=== PATIENT | female | born 1945 | race Caucasian/White ===

== ENCOUNTER 2017-10-31 11:59 | Inpatient (IN) | payer OTHER, BC ==
[2017-10-31 13:00] LABS: Absolute Lymphocytes (CBC) 1.1 K/uL (0.7-4.9); Absolute Monocytes 0.7 K/uL (0.1-1.3); Absolute Neutrophil 13.6 K/uL (1.8-8.0); Basophils % 0.2 % (0-1.3); Hematocrit 42.2 % (36.0-45.0); Lymphocytes % 7.2 % (15.3-44.8); MCH 36.6 pg (27.0-35.0); MCV 104.5 fL (80-100); MPV 8.7 fL (7.6-11.3); Monocytes % 4.5 % (3.3-12.3); RBC Red Blood Cell Count 4.04 M/uL (3.86-4.86)
[2017-10-31] MEDS ORDERED: [UNRECOGNIZED DRUG - OTHER] IV SCH (13:00)
[2017-10-31] MEDS ORDERED: MULTIVITAMINS IV SCH (13:00)
[2017-10-31] MEDS ORDERED: THIAMINE HCL IV SCH (13:00)
[2017-10-31] MEDS ORDERED: FOLIC ACID IV SCH (13:00)
[2017-10-31 13:04] LABS: Protime INR 0.97
--- NOTE | 2017-10-31 13:34 | RAD REPORT ---
EXAM DESCRIPTION: VAS - Extrem Venous W Compress Mike - 10/31/2017 1:26 pm CLINICAL HISTORY: swelling Bilateral leg edema and swelling. COMPARISON: No comparisons TECHNIQUE: Real-time sonographic interrogation of the left and right lower extremity deep venous sys tems was performed. FINDINGS: Normal compressibility, flow augmentation, phasic flow and spontaneous flow is identified in both the left and right lower extremity deep venous systems. IMPRESSION: No sonographic evidence of left or right lower extremity deep venous thrombosis.
--- NOTE | 2017-10-31 13:34 | RAD REPORT ---
EXAM DESCRIPTION: RAD - Chest Single View - 10/31/2017 1:21 pm CLINICAL HISTORY: near syncope Chest pain. COMPARISON: No comparisons FINDINGS: Portable technique limits examination quality. The lungs are grossly clear. The heart is normal in size. No displaced fractures. IMPRESSION: No acute intrathoracic process suspected.
[2017-10-31 13:35] LABS: Albumin 3.2 g/dL (3.4-5.0); BUN Blood Urea Nitrogen 15 mg/dL (7-18); Bicarbonate 35 mmol/L (21-32); Bilirubin Direct 0.7 mg/dL (0-0.2); CKMB Creatine Kinase MB 8.3 ng/mL (0.3-3.6); Glucose Level 104 mg/dL (74-106); Potassium 1.9 mmol/L (3.5-5.1); Protein, Total 7.5 g/dL (6.4-8.2)
[2017-10-31 13:59] LABS: Magnesium 1.2 mg/dL (1.8-2.4)
[2017-10-31 14:00] LABS: Sodium Level 115 mmol/L (136-145)
[2017-10-31 14:09] LABS: Blood Morphology Comment NOT SEEN (NOT SEEN); Platelet Estimate ADEQ; Urine White Blood Cell Casts OK
--- NOTE | 2017-10-31 14:20 | ER ---
Nurse's Notes [facility] Name: Linnea Randall Age: 72 yrs Sex: Female : 1945 Arrival Date: 10/31/2017 Time: 12:09 Bed 5 Private MD: Diagnosis: Hypo-osmolality and hyponatremia;Hypokalemia;Sepsis, unspecified organism;Atrial fibrillation and flutter Presentation: 10/31 12:09 Presenting complaint: Patient states: She was in her recliner and tried to get up but aj1 says that her knees would not support her states "I've been needing to get my knee replaced, but I haven't and now I can't stand on it. And I've been so weak, I can't hold anything down. I've been throwing up everything I eat for 4 months". Transition of care: patient was not received from another setting of care. Onset of symptoms is unknown. Risk Assessment: Do you want to hurt yourself or someone else? Patient reports no desire to harm self or others. Initial Sepsis Screen: Does the patient meet any 2 criteria? No. Patient's initial sepsis screen is negative. Does the patient have a suspected source of infection? No. Patient's initial sepsis screen is negative. Care prior to arrival: None. 12:09 Method Of Arrival: EMS: [facility] aj 12:09 Acuity: PABLITO 3 aj1 Triage Assessment: 12:13 General: Appears uncomfortable, Behavior is calm, cooperative, appropriate for age. aj1 Pain: Denies pain. Historical: - Allergies: 12:13 Amoxicillin; aj1 - Home Meds: 12:13 Cefuroxime Oral 500 mg daily [Active]; meloxicam 15 mg oral tab 1 tab once daily aj1 [Active]; clonazepam 0.5 mg Oral tab 1 tab as needed [Active]; - PMHx: 12:13 Arthritis; elevated LFT; aj1 - Immunization history:: Adult Immunizations up to date. - Social history:: Smoking status: Patient uses tobacco products, smokes two packs cigarettes per day. - Ebola Screening: : Patient denies travel to an Ebola-affected area in the 21 days before illness onset. Screenin:14 Abuse screen: Denies threats or abuse. Denies injuries from another. Nutritional aj1 screening: No deficits noted. Tuberculosis screening: No symptoms or risk factors identified. 20:15 Fall Risk None identified. aj1 Assessment: 12:14 General: Appears in no apparent distress. uncomfortable, Behavior is calm, cooperative, aj1 appropriate for age. Pain: Denies pain. Neuro: Level of Consciousness is awake, alert, obeys commands, Oriented to person, place, time, situation, Collar Shaper Operator are equal bilaterally Weakness in bilateral leg(s) Speech is normal, Facial symmetry appears normal. Cardiovascular: Patient's skin is warm and dry. Respiratory: Airway is patent Respiratory effort is even, unlabored, Respiratory pattern is regular, symmetrical. GI: Abdomen is flat, non-distended, Bowel sounds present X 4 quads. Abd is soft and non tender X 4 quads. Reports vomiting. : No signs and/or symptoms were reported regarding the genitourinary system. EENT: No signs and/or symptoms were reported regarding the EENT system. Derm: No signs and/or symptoms reported regarding the dermatologic system. Skin is pink, warm \\T\\ dry. normal. Musculoskeletal: Range of motion: intact in all extremities. 13:27 Reassessment: Patient appears in no apparent distress at this time. No changes from aj1 previously documented assessment. Patient and/or family updated on plan of care and expected duration. Pain level reassessed. Patient is alert, oriented x 3, equal unlabored respirations, skin warm/dry/pink. Echo at bedside. 14:30 Reassessment: Patient and/or family updated on plan of care and expected duration. Pain aj1 level reassessed. General: Appears in no apparent distress. uncomfortable, Behavior is calm, cooperative, appropriate for age. Pain: Denies pain. Neuro: Level of Consciousness is awake, alert, obeys commands, Oriented to person, place, time, situation, Speech is normal. Cardiovascular: Denies chest pain, palpitations, shortness of breath, Heart tones S1 S2 present Patient's skin is warm and dry. Rhythm is atrial fibrillation. Respiratory: Airway is patent Respiratory effort is even, unlabored, Respiratory pattern is regular, symmetrical, Breath sounds are clear bilaterally. GI: Abdomen is flat, non-distended. Derm: Skin is pink, warm \\T\\ dry. normal. Musculoskeletal: Range of motion: intact in all extremities. 15:30 Reassessment: Patient appears in no apparent distress at this time. No changes from aj1 previously documented assessment. Patient and/or family updated on plan of care and expected duration. Pain level reassessed. Patient is alert, oriented x 3, equal unlabored respirations, skin warm/dry/pink. 16:30 Reassessment: Dr. Orozco at bedside. aj1 16:49 Reassessment: Patient and/or family updated on plan of care and expected duration. Pain aj1 level reassessed. General: Appears in no apparent distress. uncomfortable, Behavior is calm, cooperative, appropriate for age. Pain: Denies pain. Neuro: Level of Consciousness is awake, alert, obeys commands, Oriented to person, place, time, situation, Collar Shaper Operator are equal bilaterally Weakness in bilateral leg(s). Cardiovascular: Denies chest pain, palpitations, shortness of breath, Heart tones S1 S2 present Patient's skin is warm and dry. Rhythm is atrial fibrillation. Respiratory: Airway is patent Respiratory effort is even, unlabored, Respiratory pattern is regular, symmetrical, Breath sounds are clear bilaterally. GI: Abdomen is flat, non-distended. Derm: Skin is pink, warm \\T\\ dry. normal. Musculoskeletal: Range of motion: intact in all extremities. 17:30 Reassessment: Patient appears in no apparent distress at this time. No changes from aj1 previously documented assessment. Patient and/or family updated on plan of care and expected duration. Pain level reassessed. Patient is alert, oriented x 3, equal unlabored respirations, skin warm/dry/pink. 18:30 Reassessment: Patient and/or family updated on plan of care and expected duration. Pain aj1 level reassessed. General: Appears in no apparent distress. uncomfortable, Behavior is calm, cooperative, appropriate for age. Pain: Denies pain. Neuro: Level of Consciousness is awake, alert, obeys commands, Oriented to person, place, time, situation, Collar Shaper Operator are equal bilaterally Weakness in bilateral leg(s) Speech is normal, Facial symmetry appears normal. Cardiovascular: Heart tones S1 S2 present Patient's skin is warm and dry. Rhythm is atrial fibrillation. Respiratory: Airway is patent Respiratory effort is even, unlabored, Respiratory pattern is regular, symmetrical, Breath sounds are clear bilaterally. GI: Abdomen is flat, non-distended. Derm: Skin is pink, warm \\T\\ dry. normal. Musculoskeletal: Range of motion: intact in all extremities. 19:30 Reassessment: Patient appears in no apparent distress at this time. No changes from aj1 previously documented assessment. Patient and/or family updated on plan of care and expected duration. Pain level reassessed. Patient is alert, oriented x 3, equal unlabored respirations, skin warm/dry/pink. 19:53 Reassessment: Report given to JOCELYNE Mantilla in ICU. aj1 Vital Signs: 12:13 BP 135 / 80; Pulse 97; Resp 15; Pulse Ox 99% on R/A; Weight 62.14 kg; Height 5 ft. 6 aj1 in. (167.64 cm); Pain 0/10; 13:27 BP 116 / 74; Pulse 94; Resp 20; Pulse Ox 97% on R/A; aj1 14:30 BP 127 / 75; Pulse 105; Resp 18; Pulse Ox 96% on R/A; aj1 15:30 BP 106 / 71; Pulse 83; Resp 18; Pulse Ox 97% on R/A; aj1 15:55 Temp 98.9(A); jb1 16:50 BP 105 / 57; Pulse 81; Resp 14; Pulse Ox 97% on R/A; aj1 17:30 BP 107 / 65; Pulse 76; Resp 20; Pulse Ox 97% on R/A; aj1 18:30 BP 118 / 62; Pulse 79; Resp 14; Pulse Ox 96% on R/A; aj1 19:30 BP 104 / 52; Pulse 81; Resp 16; Pulse Ox 98% on R/A; aj1 20:00 BP 103 / 66; Pulse 78; Resp 18; Pulse Ox 99% ; aj1 12:13 Body Mass Index 22.11 (62.14 kg, 167.64 cm) aj1 ED Course: 12:09 Patient arrived in ED. aj1 12:09 Shahla Cardenas FNP-C [facility]. snw 12:09 Domenic Ulrich MD is Attending Physician. snw 12:11 Triage completed. aj1 12:13 Arm band placed on. aj1 12:14 Patient has correct armband on for positive identification. Bed in low position. Call aj1 light in reach. Side rails up X2. 12:14 No provider procedures requiring assistance completed. aj1 12:24 EKG done, by ED staff, reviewed by Shahla JUAREZ. jb1 12:25 First set of blood cultures drawn by me. jb1 12:30 Chio Kirk, RN is Primary Nurse. aj1 12:40 Inserted saline lock: 20 gauge in left antecubital area, using aseptic technique. Blood jb1 collected. 12:40 Second set of blood cultures drawn. jb1 13:21 Chest Single View In Process Unspecified. EDMS 13:22 Ultrasound completed. Patient tolerated well. sg3 13:26 Extrem Venous W Compress Mike In Process Unspecified. EDMS 14:14 by me, sent to lab. Inserted saline lock: 20 gauge in right antecubital area, using iw aseptic technique. Blood collected. 14:18 Rocio Orozco MD is Hospitalizing Provider. snw 14:30 Wilson cath inserted, using sterile technique, 16 Fr., by me, balloon inflated, urine iw specimen collected. returned clear yellow urine. Patient tolerated well. 14:49 CT completed. Patient moved to CT via stretcher. Patient moved back from CT. cw1 14:50 CT Abd/Pelvis - W/Contrast In Process Unspecified. EDMS 14:50 CT Head Brain wo Cont In Process Unspecified. EDMS 20:15 Patient admitted, IV remains in place. aj1 Administered Medications: 14:00 Drug: Banana Bag - (NS 0.9% 1000 ml, foLIC Acid 1 mg, Thiamine 100 mg, Multivitamin 1 aj1 amp) Route: IV; Rate: 150 calculated rate; Site: left antecubital; 20:17 Follow up: IV Status: Infusion continued upon admission aj1 15:08 Drug: Potassium Chloride 20 mEq Route: IV; Rate: calculated rate; Site: right aj1 antecubital; 17:15 Follow up: IV Status: Completed infusion; IV Intake: 100ml aj1 15:08 Drug: HydroCORTISONE 100 mg Route: IVP; Site: left antecubital; aj1 16:35 Follow up: Response: No adverse reaction aj1 15:09 Drug: Magnesium Sulfate 2 grams Route: IVPB; Infused Over: 2 hrs; Site: left [facility] antecubital; 16:35 Follow up: IV Status: Completed infusion; IV Intake: 100ml aj1 16:34 Drug: LevaQUIN 750 mg Volume: 150 ml; Route: IVPB; Infused Over: 90 mins; Site: left aj antecubital; 18:00 Follow up: IV Status: Completed infusion; IV Intake: 150ml aj1 Intake: 16:35 IV: 100ml; Total: 100ml. aj1 17:15 IV: 100ml; Total: 200ml. aj1 18:00 IV: 150ml; Total: 350ml. aj1 Outcome: 14:19 Decision to Hospitalize by Provider. snw 20:16 Admitted to ICU accompanied by nurse, accompanied by tech, via stretcher, on monitor, aj1 with chart. 20:16 critical 20:16 Discharge instructions given to patient, Instructed on the need for admit, Demonstrated understanding of instructions. 20:18 Patient left the ED. aj1 Signatures: Dispatcher [employer] Camron Greenberg jbChio Rocha, RN RN ajShahla Mendoza, GEOTHERMAL INSTALLER-C GEOTHERMAL INSTALLER-Csnw Melanie Nuñez, Daiana Whitten RN 1 Zenia Irby sg3 Corrections: (The following items were deleted from the chart) 12:50 12:25 Initial lab(s) drawn, by , sent to lab. First set of blood cultures drawn by abena murray 12:51 12:48 Inserted saline lock: 20 gauge in left antecubital area, using aseptic technique. abena Blood collected. abena :51 12:40 Second set of blood cultures drawn by abena dyer
--- NOTE | 2017-10-31 14:20 | EDPHYS ---
Physician Documentation [facility] Name: Linnea Randlal Age: 72 yrs Sex: Female : 1945 Arrival Date: 10/31/2017 Time: 12:09 Bed 5 Private MD: ED Physician Domenic Ulrich HPI: 10/31 12:52 This 72 yrs old Female presents to ER via EMS with complaints of General snw Weakness. 12:52 Pt states over the past month she is just unable to support her own weight. Unable to snw stand without "collapse". Onset: The symptoms/episode began/occurred gradually, 4 week(s) ago. Severity of symptoms: At their worst the symptoms were moderate severe. It is unknown whether or not the patient has had similar symptoms in the past. scheduled for Liver "tests" on Thursday. Historical: - Allergies: 12:13 Amoxicillin; aj1 - Home Meds: 12:13 Cefuroxime Oral 500 mg daily [Active]; meloxicam 15 mg oral tab 1 tab once daily aj1 [Active]; clonazepam 0.5 mg Oral tab 1 tab as needed [Active]; - PMHx: 12:13 Arthritis; elevated LFT; aj1 - Immunization history:: Adult Immunizations up to date. - Social history:: Smoking status: Patient uses tobacco products, smokes two packs cigarettes per day. - Ebola Screening: : Patient denies travel to an Ebola-affected area in the 21 days before illness onset. ROS: 12:51 Constitutional: Negative for fever, chills, and weight loss, + generalized weakness snw Eyes: Negative for injury, pain, redness, and discharge, ENT: Negative for injury, pain, and discharge, Neck: Negative for injury, pain, and swelling, Cardiovascular: Negative for chest pain, palpitations, and edema, Respiratory: Negative for shortness of breath, cough, wheezing, and pleuritic chest pain, Abdomen/GI: Negative for abdominal pain, nausea, vomiting, diarrhea, and constipation, Back: Negative for injury and pain, : Negative for injury, bleeding, discharge, and swelling, MS/Extremity: Negative for injury and deformity, + arthritis Skin: Negative for injury, rash, and discoloration, Neuro: Negative for headache, weakness, numbness, tingling, and seizure. Exam: 12:43 Constitutional: This is a well developed, well nourished patient who is awake, alert, snw and in no acute distress. Head/Face: Normocephalic, atraumatic. Eyes: Pupils equal round and reactive to light, extra-ocular motions intact. Lids and lashes normal. Conjunctiva and sclera are non-icteric and not injected. Cornea within normal limits. Periorbital areas with no swelling, redness, or edema. Neck: Trachea midline, no thyromegaly or masses palpated, and no cervical lymphadenopathy. Supple, full range of motion without nuchal rigidity, or vertebral point tenderness. No Meningismus. Chest/axilla: Normal chest wall appearance and motion. Nontender with no deformity. No lesions are appreciated. Respiratory: Lungs have equal breath sounds bilaterally, clear to auscultation and percussion. No rales, rhonchi or wheezes noted. No increased work of breathing, no retractions or nasal flaring. Abdomen/GI: Soft, non-tender, with normal bowel sounds. No distension or tympany. No guarding or rebound. No evidence of tenderness throughout. Back: No spinal tenderness. No costovertebral tenderness. Full range of motion. Skin: Warm, dry with normal turgor. Normal color with no rashes, no lesions, and no evidence of cellulitis. MS/ Extremity: Pulses equal, no cyanosis. Neurovascular intact. Full, normal range of motion. Neuro: Awake and alert, GCS 15, oriented to person, place, time, and situation. Cranial nerves II-XII grossly intact. Motor strength 5/5 in all extremities. Sensory grossly intact. Cerebellar exam normal. Normal gait. Psych: Awake, alert, with orientation to person, place and time. Behavior, mood, and affect are within normal limits. 12:43 ENT: Mouth: Tongue: tender, displays stomatitis, displays thrush, Voice: is normal. 12:43 Cardiovascular: Rate: normal, Rhythm: irregularly irregular, Heart sounds: normal. Vital Signs: 12:13 BP 135 / 80; Pulse 97; Resp 15; Pulse Ox 99% on R/A; Weight 62.14 kg; Height 5 ft. 6 aj1 in. (167.64 cm); Pain 0/10; 13:27 BP 116 / 74; Pulse 94; Resp 20; Pulse Ox 97% on R/A; aj1 14:30 BP 127 / 75; Pulse 105; Resp 18; Pulse Ox 96% on R/A; aj1 15:30 BP 106 / 71; Pulse 83; Resp 18; Pulse Ox 97% on R/A; aj1 15:55 Temp 98.9(A); jb1 16:50 BP 105 / 57; Pulse 81; Resp 14; Pulse Ox 97% on R/A; aj1 17:30 BP 107 / 65; Pulse 76; Resp 20; Pulse Ox 97% on R/A; aj1 18:30 BP 118 / 62; Pulse 79; Resp 14; Pulse Ox 96% on R/A; aj1 19:30 BP 104 / 52; Pulse 81; Resp 16; Pulse Ox 98% on R/A; aj1 20:00 BP 103 / 66; Pulse 78; Resp 18; Pulse Ox 99% ; aj1 12:13 Body Mass Index 22.11 (62.14 kg, 167.64 cm) aj1 MDM: 12:19 Patient medically screened. snw 14:20 Data reviewed: vital signs, nurses notes. Data interpreted: Pulse oximetry: on room air snw is 97 %. Interpretation: normal. Counseling: I had a detailed discussion with the patient and/or guardian regarding: the historical points, exam findings, and any diagnostic results supporting the discharge/admit diagnosis, lab results, radiology results, the need for further work-up and treatment in the hospital. Physician consultation: Rocio Orozco MD was called at 14:20, was contacted at 14:20, and will see patient shortly. 14:21 ED course: severe electrolyte derangement. snw 10/31 12:26 Order name: Basic Metabolic Panel; Complete Time: 14:03 EDMS 10/31 12:26 Order name: CBC with Automated Diff; Complete Time: 14:11 EDMS 10/31 12:26 Order name: CKMB Creatine Kinase MB; Complete Time: 14:03 EDMS 10/31 12:26 Order name: Creatine Phosphokinase; Complete Time: 14:03 EDMS 10/31 12:26 Order name: Liver (Hepatic) Function; Complete Time: 14:03 EDMS 10/31 12:26 Order name: Magnesium; Complete Time: 14:03 EDMD 10/31 12:26 Order name: Protime (+INR); Complete Time: 13:09 EDMS 10/31 12:26 Order name: PTT, Activated Partial Thromb; Complete Time: 13:09 EDMS 10/31 12:26 Order name: Troponin (Emerg Dept Use Only); Complete Time: 13:52 EDMS 10/31 12:27 Order name: Blood Culture EDMS 10/31 12:27 Order name: Lactate; Complete Time: 14:03 EDMS 10/31 12:27 Order name: Procalcitonin; Complete Time: 13:55 EDMS 10/31 12:29 Order name: Vitamin B12 Level; Complete Time: 14:03 EDMS 10/31 13:08 Order name: CBC Smear Scan; Complete Time: 14:11 EDMS 10/31 14:06 Order name: Osmolality, Serum; Complete Time: 15:07 snw 10/31 14:06 Order name: LDH; Complete Time: 15:07 snw 10/31 14:06 Order name: Urine For Protein, Random; Complete Time: 15:38 snw 10/31 12:18 Order name: EKG; Complete Time: 13:14 snw 10/31 12:18 Order name: Cardiac monitoring; Complete Time: 12:25 snw 10/31 12:18 Order name: EKG - Nurse/Tech; Complete Time: 12:25 snw 10/31 12:18 Order name: IV Saline Lock; Complete Time: 12:49 w 10/31 12:18 Order name: Labs collected and sent; Complete Time: 12:49 snw 10/31 12:18 Order name: O2 Per Protocol; Complete Time: 12:25 snw 10/31 12:18 Order name: O2 Sat Monitoring; Complete Time: 12:25 snw 10/31 12:18 Order name: Urine Dipstick-Ancillary (obtain specimen); Complete Time: 15:42 snw 10/31 12:26 Order name: Chest Single View; Complete Time: 13:52 EDMS 10/31 12:33 Order name: Extrem Venous W Compress Mike; Complete Time: 13:52 EDMS 10/31 14:06 Order name: Urine Potassium Random; Complete Time: 15:38 snw 10/31 14:06 Order name: Urine Sodium Random; Complete Time: 15:38 snw 10/31 14:06 Order name: TSH; Complete Time: 15:07 snw 10/31 14:06 Order name: Pth,Intact; Complete Time: 15:35 snw 10/31 14:06 Order name: Phosphorus; Complete Time: 15:07 snw 10/31 14:06 Order name: Wilson; Complete Time: 14:44 snw 10/31 14:12 Order name: CT Abd/Pelvis - W/Contrast; Complete Time: 15:16 snw 10/31 14:21 Order name: Seizure Precautions; Complete Time: 15:41 snw 10/31 14:22 Order name: CT Head Brain wo Cont; Complete Time: 15:09 snw 10/31 15:31 Order name: Urine Dipstick--Ancillary (enter results) sp 10/31 15:43 Order name: Urine Dipstick-Ancillary; Complete Time: 15:45 EDMS 10/31 17:31 Order name: Lactate Sepsis 2 HR Follow-up; Complete Time: 17:33 EDMS 10/31 18:01 Order name: CBC with Automated Diff; Complete Time: 18:41 EDMS Administered Medications: 14:00 Drug: Banana Bag - (NS 0.9% 1000 ml, foLIC Acid 1 mg, Thiamine 100 mg, Multivitamin 1 aj1 amp) Route: IV; Rate: 150 calculated rate; Site: left antecubital; 20:17 Follow up: IV Status: Infusion continued upon admission aj1 15:08 Drug: Potassium Chloride 20 mEq Route: IV; Rate: calculated rate; Site: right [facility] antecubital; 17:15 Follow up: IV Status: Completed infusion; IV Intake: 100ml aj 15:08 Drug: HydroCORTISONE 100 mg Route: IVP; Site: left antecubital; aj1 16:35 Follow up: Response: No adverse reaction aj1 15:09 Drug: Magnesium Sulfate 2 grams Route: IVPB; Infused Over: 2 hrs; Site: left [facility] antecubital; 16:35 Follow up: IV Status: Completed infusion; IV Intake: 100ml aj 16:34 Drug: LevaQUIN 750 mg Volume: 150 ml; Route: IVPB; Infused Over: 90 mins; Site: left [facility] antecubital; 18:00 Follow up: IV Status: Completed infusion; IV Intake: 150ml aj Disposition: 10/31/17 14:19 Hospitalization ordered by Rocio Orozco for Inpatient Admission. Preliminary diagnosis are Hypo-osmolality and hyponatremia, Hypokalemia, Sepsis, unspecified organism, Atrial fibrillation and flutter. - Bed requested for Intensive Care Unit. - Status is Inpatient Admission. aj1 - Condition is Fair. - Problem is an acute exacerbation. - Symptoms have worsened. UTI on Admission? Yes Addendum: 11/02/2017 23:03 Co-signature as Attending Physician, Domenic Ulrich MD I agree with the assessment and k dr plan of care. Signatures: Dispatcher [employer] EDMD Chio Kirk RN RN aj1 Gail Mai RN RN dw Domenic Ulrich MD MD kdr Shahla Cardenas, ASSOCIATE ARTISTIC DIRECTOR-C ASSOCIATE ARTISTIC DIRECTOR-Csnw Corrections: (The following items were deleted from the chart) 10/31 13:21 13:14 Chest Single View+RAD.RAD.BRZ ordered. EDMD EDMD 13:25 13:14 Extrem Venous W Compression Mike+US.RAD.BRZ ordered. [facility] EDMD 14:34 14:19 Hospitalization Ordered by Rocio Orozco MD for Inpatient Admission. snw Preliminary diagnosis is Hypo-osmolality and hyponatremia; Hypokalemia; Sepsis, unspecified organism. Bed requested for Intensive Care Unit. Status is Inpatient Admission. Condition is Fair. Problem is an acute exacerbation. Symptoms have worsened. UTI on Admission? Yes. snw 14:47 13:14 BASIC METABOLIC PANEL+C.LAB.BRZ ordered. [facility] EDMS 14:47 13:14 CKMB+C.LAB.BRZ ordered. EDMD EDMD 14:47 13:14 CREATINE PHOSPHOKINASE+C.LAB.BRZ ordered. EDMD EDMS 14:47 13:14 HEPATIC FUNCTION+C.LAB.BRZ ordered. EDMD EDMS 14:47 13:14 MAGNESIUM+C.LAB.BRZ ordered. EDMD EDMS 14:47 13:14 TROPONIN (EMERG DEPT USE ONLY)+C.LAB.BRZ ordered. EDMD EDMS 14:47 13:14 VITAMIN B12+C.LAB.BRZ ordered. EDMD EDMS 14:47 13:14 BLOOD CULTURE*+BA.LAB.BRZ ordered. EDMD EDMS 14:48 13:14 CBC+H.LAB.BRZ ordered. [facility] EDMS 14:48 13:14 PROTIME (+INR)+COAG.LAB.BRZ ordered. [facility] EDMD 14:48 13:14 PTT, ACTIVATED+COAG.LAB.BRZ ordered. [facility] EDMD 14:48 13:14 LACTATE+C.LAB.BRZ ordered. [facility] EDMD 14:48 13:14 Procalcitonin+C.LAB.BRZ ordered. [facility] EDMD 15:44 12:18 Accucheck ordered. [facility] aj1 16:16 14:34 10/31/2017 14:19 Hospitalization Ordered by Rocio Orozco MD for Inpatient Admission. Preliminary diagnosis is Hypo-osmolality and hyponatremia; Hypokalemia; Sepsis, unspecified organism; Atrial fibrillation and flutter. Bed requested for Intensive Care Unit. Status is Inpatient Admission. Condition is Fair. Problem is an acute exacerbation. Symptoms have worsened. UTI on Admission? Yes. [facility] 20:18 16:16 10/31/2017 14:19 Hospitalization Ordered by Rocio Orozco MD for Inpatient [facility] Admission. Preliminary diagnosis is Hypo-osmolality and hyponatremia; Hypokalemia; Sepsis, unspecified organism; Atrial fibrillation and flutter. Bed requested for Intensive Care Unit. Status is Inpatient Admission. Condition is Fair. Problem is an acute exacerbation. Symptoms have worsened. UTI on Admission? Yes.
[2017-10-31] MEDS ORDERED: HYDROCORTISONE SUC 100 MG INJ ONE (14:38)
[2017-10-31] MEDS ORDERED: Levofloxacin 750mg IV 750 MG/150 ML BAG IV ONE (14:38)
[2017-10-31] MEDS ORDERED: Magnesium Sulfate 2gm IVPB 2 G/50 ML BAG IV ONE (14:38)
[2017-10-31] MEDS ORDERED: KCL 20 MEQ/100 mL IVPB 20 MEQ/100 ML BAG IV ONE (14:39)
[2017-10-31 14:52] LABS: Phosphorus 2.3 mg/dL (2.5-4.9); Thyroid Stimulating Hormone 1.01 uIU/mL (0.36-3.74)
--- NOTE | 2017-10-31 15:08 | RAD REPORT ---
EXAM DESCRIPTION: CT - Head Brain Wo Cont - 10/31/2017 2:50 pm CLINICAL HISTORY: DECLINING STATE Drowsiness COMPARISON: No comparisons TECHNIQUE: All CT scans are performed using dose optimization technique as appropriate and may inclu de automated exposure control or mA/KV adjustment according to patient size. FINDINGS: No intracranial hemorrhage, hydrocephalus or extra-axial fluid collection.Moderate general ized brain atrophy is present with moderate periventricular and deep white matter chronic microvascul ar ischemic changes.No areas of brain edema or evidence of midline shift. The paranasal sinuses and mastoids are clear. The calvarium is intact. IMPRESSION: No acute intracranial abnormality.
--- NOTE | 2017-10-31 15:11 | RAD REPORT ---
EXAM DESCRIPTION: CTAbdomen Pelvis W Contrast - 10/31/2017 2:50 pm CLINICAL HISTORY: Abdominal pain. ABD PAIN COMPARISON: Chest Single View dated 10/31/2017; Head Brain Wo Cont dated 10/31/2017 TECHNIQUE: Biphasic CT imaging of the abdomen and pelvis was performed with 100 ml non-ionic IV cont rast. All CT scans are performed using dose optimization technique as appropriate and may include automated exposure control or mA/KV adjustment according to patient size. FINDINGS: Mild linear atelectasis in both posterior lung bases. Mild diffuse fatty liver is seen. The gallbladder is mildly distended. The spleen, pancreas and adren al glands are within normal limits. Small bilateral renal cysts. No hydronephrosis. No bowel obstruction, free air, free fluid or abscess. Appendectomy suspected. No evidence of signi ficant lymphadenopathy. Urinary bladder is quite distended although a Wilson catheter is present. No suspicious bony findings. IMPRESSION: No acute intra-abdominal or pelvic finding. Mild fatty liver. Urinary bladder is distended with a Wilson catheter in place.
[2017-10-31 15:42] LABS: Urine Blood TRACE (NEG); Urine Glucose NEGATIVE (NEG); Urine Protein NEGATIVE (NEG); Urine pH 6.5 (5.0-7.0)
[2017-10-31] MEDS ORDERED: FLUMAZENIL 0.1 MG/ML (5 mL VIAL) IV PRN (16:35)
[2017-10-31] MEDS ORDERED: ONDANSETRON 4 MG/2 ML VIAL IV PRN (16:35)
[2017-10-31] MEDS ORDERED: ALBUTEROL 2.5 MG/3 ML NEB SOL NEB PRN (16:35)
[2017-10-31] MEDS ORDERED: MAGNES/ALUMIN/SIMET 30ML UCUP PO PRN (16:35)
[2017-10-31 18:00] LABS: Absolute Lymphocytes (CBC) 0.6 K/uL (0.7-4.9); Absolute Monocytes 0.4 K/uL (0.1-1.3); Absolute Neutrophil 11.1 K/uL (1.8-8.0); Basophils % 0.2 % (0-1.3); Eosinophils % 0.1 % (0-4.4); Hematocrit 38.4 % (36.0-45.0); Lymphocytes % 4.9 % (15.3-44.8); MCH 36.1 pg (27.0-35.0); MCV 105.1 fL (80-100); MPV 8.5 fL (7.6-11.3); Monocytes % 3.6 % (3.3-12.3); RBC Red Blood Cell Count 3.65 M/uL (3.86-4.86)
[2017-10-31] MEDS: CEFTRIAXONE/SWI 2gm 2 GM/20 ML SYR IV SCH (18:00)
--- NOTE | 2017-10-31 18:06 | HP ---
Date of Admission: 10/31/2017 Reason For Admission: Fatigue with multiple falls. History Of Present Illness: This is a 72-year-old, active female with history of alcohol abuse, arth ritis, presented to the emergency room with history of 6-7 drinks of nausea vomiting. Eventually she was evaluated with by the PCP and found to have UTI. She was started on cefuroxime antibiotic, and she did not get any better. The patient lately has increased frequency of falls due to generalized f atigue and weakness, and the pain in her knees, which she takes 4 meloxicam. Today, she was extremel y weak, and the family decided to bring her to the emergency room where she was evaluated. In the ER , she was found to have white blood cells of 15.5, with severe electrolyte deficiencies with sodium o f 115, potassium 1.9, chloride 70, and magnesium 1.2. She was started on a banana bag with IV fluid and admitted for further eval. Her serum osmolality was low at 256. Her urine osmolality is still p ending. Her LFTs were elevated with total bilirubin of 2, direct bilirubin of 0.7, AST of 60, and ap parently that has been going on since she is an outpatient. Her troponin was negative. Currently, s he is sleeping, comfortable does not look in any distress. There was no seizure noted according to t he . She drink alcohol up to 4-5 beers a day for so many years. Review of Systems: Otherwise as below. Past Medical History: Positive for osteoarthritis, recent UTI, elevated LFTs, alcohol abuse. Past Surgical History: Significant for knee surgery. Allergies: AMOXICILLIN. Social History: She is . 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 She has 3 kids. She does smoke 1 pack a day for so many years. She drinks 4 beers a day for so many years. She does not use any drugs. Family History: Both father and mother , but the does not know of what. Home Medications: She is on cephalexin 500 mg daily. Meloxicam 50 mg orally daily. Xanax 0.5 mg as needed. Review of Systems: There was no fever, chills, night sweats, dizziness, lightheaded, headache at home, but she has gener alized fatigue and weakness, multiple falls. She did not have any loss of consciousness. There was no chest pain, palpitations, PND, orthopnea dyspnea on exertion. There is no cough, sputum, shortnes s of breath. She does have nausea and vomiting. No abdominal pain. No change in bowel movement, di arrhea or constipation. She does have history of dysuria, but that has resolved. There is no histor y of depression, but anxiety. She has no history of seizure or stroke. Physical Examination: Vital Signs: Currently, blood pressure is 116/70, respiratory rate 20, pulse 94, temperature within normal, saturating 97% on room air. General: She is fully alert, oriented x3. Does not look in any distress. She was sleeping, but she was not easily arousable. HEENT: Atraumatic, normocephalic. PERRLA. Oral mucosa is moist. Neck: Supple. No JVP. No carotid bruits. Chest: Clear to auscultation. Good air entry. Heart: Regular rate and rhythm. S1, S2 normal. No gallop or murmur. Abdomen: Soft, nontender, with no hepatosplenomegaly. Positive bowel sounds. Extremities: No clubbing or cyanosis or edema. No calf tenderness. Neurologic: Grossly intact. Cranial nerve exam 2 through 12 intact. Normal sensation. Normal refl exes. Normal muscle strength. Laboratory Data: Labs done in the ER showed white blood cells of 15.5, MCV of . PT/INR wi thin normal except for PTT at 24. Chemistry within normal except for magnesium 1.2, sodium 115, pota ssium 1.9, chloride 70, lactic acid 2.8 cm. Serum osmolality at 251. Urine with +1 leukocyte estera se. Some protein, low urine sodium and potassium. CAT scan of the abdomen was negative. CAT scan of the brain was negative. Assessment And Plan: The patient is 72-year-old female with history of alcohol abuse, presented with fatigue and weakness. 1.Severe electrolyte imbalance. Etiology? We will proceed with sodium replacement with normal sali ne and check sodium level every 6 hours. So we do not correct sodium real fast to avoid the central pontine syndrome that can happen. We will also replace patient's magnesium, and the patient's potass ium. She will be on magnesium and potassium protocol. She will receive 1 banana bag a day with timothy banerjee thiamine, supplement. Given her history of alcohol abuse. I will check her urine osmolality to e valuate and see if the patient had a SIADH or if further workup needed, if lyte does not correct in a .m. The patient will be on seizure precaution given her severe hyponatremia. 2.History of recent urinary tract infection. I will check UA, urine culture. Continue patient on c eftriaxone empirically. 3.Symptomatic treatment for pain. 4.Recent history of nausea and vomiting. We will discharge the patient on Zofran. 5.The patient will be on DVT prophylaxis, Lovenox. 6.The patient will need to have education about alcohol abuse and to stop. 7.Elevated liver function tests. CT scan was negative. I will check hepatitis panel. 8.Elevated erythrocyte macrocytic volume most likely secondary to alcohol abuse. We will check ryan min B12, folic, and thyroid. MT/MODL Voice ID: [id number]
[2017-10-31] MEDS: ENOXAPARIN 40 MG/0.4 ML SQ SCH (21:15)
[2017-10-31] MEDS: NA CHLORIDE 0.9% 1,000 ML IV SCH (21:18)
[2017-10-31 21:44] LABS: BUN Blood Urea Nitrogen 12 mg/dL (7-18); Bicarbonate 36 mmol/L (21-32); Glucose Level 115 mg/dL (74-106); Sodium Level 121 mmol/L (136-145); Thyroid Stimulating Hormone 0.67 uIU/mL (0.36-3.74)
[2017-10-31 21:59] LABS: Potassium 2.1 mmol/L (3.5-5.1)
[2017-10-31 22:00] LABS: Folic Acid, (Folate) > 20.0 ng/mL (3.1-17.5)
[2017-10-31] MEDS ORDERED: POTASSIUM PHOS IN 0.9 % NACL 15 MMOL/250 ML BAG IV ONE (22:09)
[2017-11-01] MEDS: KCL 20 MEQ/100 mL IVPB 20 MEQ/100 ML BAG IV SCH ×5 (01:20→12:15)
[2017-11-01] MEDS: NA CHLORIDE 0.9% 1,000 ML IV SCH ×4 (02:00→22:51)
[2017-11-01 04:54] LABS: ALT/SGPT 21 U/L (12-78); AST/SGOT 39 U/L (15-37); Albumin 2.5 g/dL (3.4-5.0); Alkaline Phosphatase 122 U/L (45-117); BUN Blood Urea Nitrogen 10 mg/dL (7-18); Bicarbonate 34 mmol/L (21-32); Bilirubin Total 0.9 mg/dL (0.2-1.0); Glucose Level 95 mg/dL (74-106); Magnesium 1.8 mg/dL (1.8-2.4); Phosphorus 3.3 mg/dL (2.5-4.9); Protein, Total 5.9 g/dL (6.4-8.2); Sodium Level 130 mmol/L (136-145)
[2017-11-01 05:10] LABS: Potassium 2.7 mmol/L (3.5-5.1)
[2017-11-01] MEDS ORDERED: MAGNESIUM SULFATE 1 gm IVPB 1 GM/100 ML BAG IV ONE (06:00)
[2017-11-01] MEDS: FOLIC ACID 1 MG, MULTIVITAMINS INJ 10 ML, THIAMINE HCL 100 MG in NA CHLORIDE 0.9% 1,000 ML IV SCH (07:55)
[2017-11-01] MEDS ORDERED: PNEUMOCOCCAL VACCINE 0.5 ML IMVAC ONE (08:00)
[2017-11-01] MEDS ORDERED: FOLIC ACID 1 MG TABLET PO SCH (09:00)
[2017-11-01] MEDS ORDERED: CEFTRIAXONE 2,000 MG in NA CHLORIDE 0.9% 100 ML IV SCH (09:00)
[2017-11-01] MEDS ORDERED: MULTIVITAMIN TAB PO SCH (09:00)
[2017-11-01] MEDS ORDERED: THIAMINE HCL 100 MG TABLET PO SCH (09:00)
[2017-11-01] MEDS ORDERED: clonazePAM 0.5 MG TAB PO PRN (13:08)
--- NOTE | 2017-11-01 14:28 | PN ---
Subjective: Currently, the patient lying in bed. She is eating her lunch. She looks fine. She is more alert and awake this morning. She has no nausea, no vomiting. No chest pain. No fever or chil ls reported overnight. Review of Systems: Otherwise negative. Physical Examination: Vital Signs: Blood pressure 122/62, respiratory rate 15, pulse 78, temperature max 96.8. General: The patient is alert and oriented x3. Does not look in any distress. HEENT: Atraumatic, normocephalic. PERRLA. Oral mucosa is moist. Neck: Supple. No JVD. No carotid bruits. Chest: Clear to auscultation. Good air entry. Heart: Regular rate and rhythm. S1, S2 normal. No gallop or murmur. Abdomen: Soft, nontender. No masses. No hepatosplenomegaly. Positive bowel sounds. Obese. Extremities: No clubbing, cyanosis, or edema. No calf tenderness. Neurologic: Grossly intact. Laboratory Data: Labs today CBC with white blood cells down to 12.2, hemoglobin 13.2, platelets norm al. Chemistry showed improvement in the sodium up to 130 this morning, potassium at 2.3, magnesium b ack to normal at 1.8, glucose 95. Folate and vitamin B12 normal. TSH was normal. Blood cultures all so far negative. UA yesterday negative. Urine osmolality at 116. Assessment And Plan: 1.Significant weakness and fatigue with frequent falls. CT scan of the head was negative. No injur ies were noted. Most likely secondary to severe electrolyte depletion with severe hyponatremia, hypo kalemia, and hypomagnesemia. We will continue placement. The patient's sodium is much better up to 131 this morning. Her magnesium is normal, but her potassium continued to be low, so we will replace that on potassium replacement protocol. 2.History of alcohol abuse. Advised strongly to stop. The patient is on banana bag daily with mult ivitamin, thiamine, and folic acid. 3.Recent urinary tract infection, on antibiotic as outpatient. Continue ceftriaxone at this point. So far, urine culture is pending. 4.Nausea and vomiting, resolved, could be secondary to severe hyponatremia. 5.Discontinue seizure precaution. The patient's sodium almost normal. 6.Elevated liver enzymes. CT was negative. Most likely secondary to alcoholism. Hepatitis profile pending today and bilirubin is normal. 7.Transfer to the floor. 8.We will obtain consult Physical Therapy for discharge plan hopefully in the a.m. if patient's lyte s within normal. 9.Counseled about stopping alcohol. MT/MODL Voice ID: [id number] Report ID: [id number]
[2017-11-01] MEDS: LORazepam 2 MG/ML VIAL IV PRN ×2 (15:46→22:47)
[2017-11-01] MEDS: ENOXAPARIN 40 MG/0.4 ML SQ SCH (17:05)
[2017-11-01] MEDS: CEFTRIAXONE/SWI 2gm 2 GM/20 ML SYR IV SCH (17:05)
[2017-11-01 19:44] LABS: BUN Blood Urea Nitrogen 8 mg/dL (7-18); Bicarbonate 35 mmol/L (21-32); Glucose Level 106 mg/dL (74-106); Sodium Level 130 mmol/L (136-145)
[2017-11-01 19:46] LABS: Potassium 2.7 mmol/L (3.5-5.1)
[2017-11-02] MEDS: KCL 20 MEQ/100 mL IVPB 20 MEQ/100 ML BAG IV SCH ×5 (03:54→23:04)
[2017-11-02] MEDS ORDERED: Magnesium Sulfate 2gm IVPB 2 G/50 ML BAG IV ONE (05:48)
--- NOTE | 2017-11-02 06:58 | EKG ---
Test Date: 2017-10-31 Test Time: 12:20:16 Commissary Representative: SOFI MEASUREMENT RESULTS: Intervals: Rate: 106 OH: 192 QRSD: 102 QT: 348 QTc: 462 [place]: P: [place]: 192 QRS: 29 T: 221 INTERPRETIVE STATEMENTS: Multifocal atrial tachycardia ST & T wave abnormality, consider inferior ischemia ST & T wave abnormality, consider anterolateral ischemia Abnormal ECG No previous ECG available for comparison Electronically Signed On 11-02-17 06:57:56 CDT by Alexandre Hinds
[2017-11-02 07:49] LABS: Absolute Lymphocytes (CBC) 2.4 K/uL (0.7-4.9); Absolute Monocytes 0.7 K/uL (0.1-1.3); Absolute Neutrophil 7.1 K/uL (1.8-8.0); Basophils % 0.7 % (0-1.3); Eosinophils % 0.6 % (0-4.4); Hematocrit 36.1 % (36.0-45.0); Lymphocytes % 23.2 % (15.3-44.8); MCH 36.3 pg (27.0-35.0); MCV 108.2 fL (80-100); MPV 8.9 fL (7.6-11.3); Monocytes % 6.6 % (3.3-12.3); RBC Red Blood Cell Count 3.33 M/uL (3.86-4.86)
[2017-11-02 08:13] LABS: Blood Morphology Comment NOTED (NOT SEEN); Macrocytosis 1+; Platelet Estimate ADEQ; Urine White Blood Cell Casts OK
[2017-11-02 08:29] LABS: BUN Blood Urea Nitrogen 4 mg/dL (7-18); Bicarbonate 33 mmol/L (21-32); Glucose Level 96 mg/dL (74-106); Sodium Level 135 mmol/L (136-145)
[2017-11-02 08:30] LABS: Magnesium 1.3 mg/dL (1.8-2.4); Potassium 2.8 mmol/L (3.5-5.1)
[2017-11-02] MEDS: NA CHLORIDE 0.9% 1,000 ML IV SCH ×3 (08:39→21:00)
--- NOTE | 2017-11-02 10:27 | P.PN ---
Subjective Date of Service: 11/02/17 Primary Care Provider: unknown Subjective: Other (Patient still with increased fatigue. Patient with increased somnolence.) Physical Examination - Vital Signs Temperature: 97.4 F Blood Pressure: 111/54 Pulse: 80 Respirations: 12 Pulse Ox (%): 97 - Physical Exam General: Alert, Other (Patient with increased somnolence. Some confusion noted. ) HEENT: Atraumatic Neck: Supple Respiratory: Clear to auscultation bilaterally, Normal air movement Cardiovascular: Normal pulses, Regular rate/rhythm Gastrointestinal: Normal bowel sounds, Soft and benign, Non-distended, No tenderness, No masses, No rebound, No guarding Musculoskeletal: No erythema, No tenderness, No warmth Integumentary: No tenderness/swelling, No erythema, No warmth, No cyanosis Neurological: Normal strength at 5/5 x4 extr, Normal tone, Abnormal affect ( Poor eye contact noted) Lymphatics: No axilla or inguinal lymphadenopathy - Studies Medications List Reviewed: Yes Assessment & Plan - Problems (Diagnosis) (1) Fatigue Current Visit: Yes Status: Acute Plan: Etiology unknown. Patient recently treated for UTIs an outpatient. Will continue antibiotic therapy. Urine culture pending at this time. Blood cultures negative. Physical therapy to assess ambulation. Suspect initial toxic encephalopathy related to UTI. Will order MRI to further assess. Patient with history of alcohol abuse is well. Will need to discuss with family about plan of care. Patient will likely need skilled placement. Qualifiers: Fatigue type: unspecified Qualified Code(s): R53.83 - Other fatigue (2) Encephalopathy Current Visit: Yes Status: Acute Plan: Likely related to UTI. Continue antibiotic therapy. Patient recently treated for UTI as an outpatient. Will need to obtained urine culture done as an outpatient. Will order MRI to further assess. Will need to rule out stroke. (3) Hypokalemia Current Visit: Yes Status: Acute Plan: Continue to replace. Will monitor closely. Replaced in protocol in place. (4) Hypomagnesemia Current Visit: Yes Status: Acute Plan: Continue to monitor and replace appropriately, replacement protocol in place. (5) Dehydration Current Visit: Yes Status: Acute Plan: Will monitor and adjust appropriately. Encourage oral intake. (6) Alcohol abuse Current Visit: Yes Status: Chronic Plan: Patient with alcohol abuse. Will need to confirm with family. (7) Elevated liver function tests Onset Date: 11/02/17 Current Visit: Yes Status: Acute Plan: Fatty liver noted on CT scan. Will monitor closely. Lab improved. (8) Nausea & vomiting Onset Date: 11/02/17 Current Visit: Yes Status: Acute Plan: This appears improved. Will monitor closely. Qualifiers: Vomiting type: unspecified Vomiting Intractability: unspecified Qualified Code(s): R11.2 - Nausea with vomiting, unspecified (9) Urinary tract infection Onset Date: 11/02/17 Current Visit: Yes Status: Acute Plan: Patient recently treated for UTI as an outpatient. Will continue antibiotic therapy. Await urine culture results. Will need to obtain more information from family. Will try to obtain outpatient urine culture. Qualifiers: Urinary tract infection type: site unspecified Hematuria presence: without hematuria Qualified Code(s): N39.0 - Urinary tract infection, site not specified (10) Hyponatremia Current Visit: Yes Status: Acute Plan: Likely from alcohol abuse. This has improved. Will monitor closely. Discharge Plan: Other (Skilled placement) Plan to discharge in: 48 Hours Time Spent Managing Pts Care (In Minutes): 55
[2017-11-02] MEDS: FOLIC ACID 1 MG, MULTIVITAMINS INJ 10 ML, THIAMINE HCL 100 MG in NA CHLORIDE 0.9% 1,000 ML IV SCH (10:44)
[2017-11-02 12:31] LABS: Barbiturates NEGATIVE (NEGATIVE); Benzodiazepines NEGATIVE (NEGATIVE); Cocaine NEGATIVE (NEGATIVE); METHAMPHETAM NEGATIVE (NEGATIVE); Methadone NEGATIVE (NEGATIVE); Opiates NEGATIVE (NEGATIVE); Phencyclidine NEGATIVE (NEGATIVE); THC Cannibis NEGATIVE (NEGATIVE)
[2017-11-02] MEDS: LORazepam 2 MG/ML VIAL IV PRN (15:06)
--- NOTE | 2017-11-02 17:42 | RAD REPORT ---
EXAM DESCRIPTION: MRI - Stroke Protocol - 11/02/2017 4:10 pm CLINICAL HISTORY: Fatigue, Alcohol abuse. CVA.Drowsiness. COMPARISON: Head Brain Wo Cont dated 10/31/2017 TECHNIQUE: MRI of brain with diffusion-weighted imaging with contrast 3D [id number] non contrast MR angiography of the [place]. 2D [id number] post contrast MR angiography of the neck vessels. Approximately 20 cc of Magnevist contrast was administered during the study. FINDINGS: No intracranial hemorrhage, hydrocephalus or extra-axial fluid collection is seen. Mild co nfluent T2/FLAIR hyperintensity in the periventricular and deep white matter is present compatible wi th chronic microvascular ischemic changes.No areas of brain edema or midline shift. No intracranial m ass lesion. Diffusion-weighted imaging is negative for acute CVA. The midline structures are normally formed. Post-contrast imaging through the brain shows no abnormal enhancement to suggest tumor or infection. Mastoid air cells and paranasal sinuses are clear. MR angiography of the [place] shows no aneurysm, flow-limiting stenosis or vascular malforma tion. origin of left PCOM is noted, normal variant. Persists left trigeminal artery also suspec gerber, addition variant anatomy. MR angiography of the neck vessels shows no significant carotid stenosis. Antegrade flow is seen in b oth vertebral arteries. IMPRESSION: Negative for acute CVA or other acute intracranial abnormality.
[2017-11-02] MEDS ORDERED: MAGNESIUM SULFATE 1 gm IVPB 1 GM/100 ML BAG IV ONE (18:00)
[2017-11-02] MEDS: ENOXAPARIN 40 MG/0.4 ML SQ SCH (18:08)
[2017-11-02] MEDS: CEFTRIAXONE/SWI 2gm 2 GM/20 ML SYR IV SCH (18:09)
[2017-11-02] MEDS: ENSURE ENLIVE 237 ML CAN PO SCH ×2 (21:00)
[2017-11-02] MEDS: JUVEN PACKET PO SCH ×2 (21:00→21:37)
[2017-11-03] MEDS: NA CHLORIDE 0.9% 1,000 ML IV SCH ×2 (02:27→10:38)
[2017-11-03 04:30] LABS: Absolute Lymphocytes (CBC) 2.7 K/uL (0.7-4.9); Absolute Monocytes 0.8 K/uL (0.1-1.3); Absolute Neutrophil 7.3 K/uL (1.8-8.0); Basophils % 0.5 % (0-1.3); Eosinophils % 0.8 % (0-4.4); Hematocrit 37.6 % (36.0-45.0); Lymphocytes % 24.5 % (15.3-44.8); MCH 36.6 pg (27.0-35.0); MPV 8.5 fL (7.6-11.3); RBC Red Blood Cell Count 3.47 M/uL (3.86-4.86)
[2017-11-03 05:17] LABS: MCV 108.4 fL (80-100)
[2017-11-03 05:40] LABS: BUN Blood Urea Nitrogen 4 mg/dL (7-18); Bicarbonate 32 mmol/L (21-32); Glucose Level 109 mg/dL (74-106); HDL Cholesterol 42 mg/dL (40-60); LDL Cholesterol, Calculated 115 (<130); Magnesium 1.5 mg/dL (1.8-2.4); Potassium 3.3 mmol/L (3.5-5.1); Sodium Level 133 mmol/L (136-145)
[2017-11-03] MEDS ORDERED: Magnesium Sulfate 2gm IVPB 2 G/50 ML BAG IV ONE (07:00)
[2017-11-03] MEDS: KCL 20 MEQ/100 mL IVPB 20 MEQ/100 ML BAG IV SCH ×2 (07:35→10:39)
[2017-11-03] MEDS: FOLIC ACID 1 MG, MULTIVITAMINS INJ 10 ML, THIAMINE HCL 100 MG in NA CHLORIDE 0.9% 1,000 ML IV SCH (10:38)
[2017-11-03] MEDS: JUVEN PACKET PO SCH (10:39)
[2017-11-03] MEDS: ENSURE ENLIVE 237 ML CAN PO SCH (10:39)
--- NOTE | 2017-11-03 13:11 | P.PN ---
Subjective Date of Service: 11/03/17 Primary Care Provider: unknown Chief Complaint: weakness Subjective: Doing well Physical Examination - Vital Signs Temperature: 97.4 F Blood Pressure: 103/69 Pulse: 83 Respirations: 18 Pulse Ox (%): 96 - Physical Exam General: Alert HEENT: Atraumatic Neck: Supple Respiratory: Clear to auscultation bilaterally, Normal air movement Cardiovascular: Normal pulses, Regular rate/rhythm Gastrointestinal: Normal bowel sounds, Soft and benign, Non-distended, No tenderness, No masses, No rebound, No guarding Musculoskeletal: No tenderness, No warmth Integumentary: No erythema, No warmth, No cyanosis Neurological: Normal speech, Normal strength at 5/5 x4 extr, Normal tone - Studies Medications List Reviewed: Yes Assessment & Plan - Problems (Diagnosis) (1) Fatigue Current Visit: Yes Status: Acute Plan: Etiology unknown. Patient recently treated for UTIs an outpatient. Will continue antibiotic therapy. Current urine culture negative. WIll try to obtain urine culture from [place]. MRI negative for CVA. Continue to work with PT. Recommend SNF placement. Encourage oral intake. Qualifiers: Fatigue type: unspecified Qualified Code(s): R53.83 - Other fatigue (2) Encephalopathy Current Visit: Yes Status: Acute Plan: Likely related to UTI. Continue antibiotic therapy. Patient recently treated for UTI as an outpatient. Will need to obtained urine culture done as an outpatient. MRI negative (3) Hypokalemia Current Visit: Yes Status: Acute Plan: Continue to replace. Will monitor closely. Replaced in protocol in place. (4) Hypomagnesemia Current Visit: Yes Status: Acute Plan: Continue to monitor and replace appropriately, replacement protocol in place. (5) Dehydration Current Visit: Yes Status: Acute Plan: Will monitor and adjust appropriately. Encourage oral intake. (6) Alcohol abuse Current Visit: Yes Status: Chronic Plan: Patient with alcohol abuse. Cessation addressed. Family agrees. (7) Elevated liver function tests Onset Date: 11/02/17 Current Visit: Yes Status: Acute Plan: Fatty liver noted on CT scan. Will monitor closely. Lab improved. (8) Nausea & vomiting Onset Date: 11/02/17 Current Visit: Yes Status: Acute Plan: This appears improved. Will monitor closely. Qualifiers: Vomiting type: unspecified Vomiting Intractability: unspecified Qualified Code(s): R11.2 - Nausea with vomiting, unspecified (9) Urinary tract infection Onset Date: 11/02/17 Current Visit: Yes Status: Acute Plan: Patient recently treated for UTI as an outpatient. Will continue antibiotic therapy. Current UC negative. Will try to obtain outpatient UC. Qualifiers: Urinary tract infection type: site unspecified Hematuria presence: without hematuria Qualified Code(s): N39.0 - Urinary tract infection, site not specified (10) Hyponatremia Current Visit: Yes Status: Acute Plan: Likely from alcohol abuse. This has improved. Will monitor closely. Discharge Plan: Other (SNF) Plan to discharge in: 24 Hours Time Spent Managing Pts Care (In Minutes): 55
--- NOTE | 2017-11-03 15:33 | ECHO ---
HEIGHT: 5 ft 6 in WEIGHT: 139 lb 3.2 oz DATE OF STUDY: 11/03/[address]: Cade Viramontes DO 2-DIMENSIONAL: YES M.MODE: YES DOPPLER: YES COLOR FLOW: YES TDS: YES PORTABLE: NO DEFINITY: NO BUBBLE STUDY: NO DIAGNOSIS: ALTERED MENTAL STATUS, ALCOHOL ABUSE CARDIAC HISTORY: CATHERIZATION: NO SURGERY: NO PROSTHETIC VALVE: NO PACEMAKER: NO MEASUREMENTS (cm) DIASTOLIC (NORMALS) SYSTOLIC (NORMALS) IVSd 1.1 (0.6-1.2) LA Diam 3.4 (1.9-4.0) LVEF 54% LVIDd 4.6 (3.5-5.7) LVIDs 3.4 (2.0-3.5) %FS 28% LVPWd 1.3 (0.6-1.2) Ao Diam 2.8 (2.0-3.7) 2 DIMENSIONAL ASSESSMENT: RIGHT ATRIUM: NORMAL LEFT ATRIUM: NORMAL RIGHT VENTRICLE: NORMAL LEFT VENTRICLE: MILD LEFT VENTRICULAR HYPERTROPHY TRICUSPID VALVE: NORMAL MITRAL VALVE: NORMAL PULMONIC VALVE: NORMAL AORTIC VALVE: NORMAL PERICARDIAL EFFUSION: NONE AORTIC ROOT: NORMAL LEFT VENTRICULAR WALL MOTION: NORMAL DOPPLER/COLOR FLOW: MILD TRICUSPID REGURGITATION. COMMENTS: MILD LEFT VENTRICULAR HYPERTROPHY. MILD TRICUSPID REGURGITATION. NORMAL LEFT VENTRICULAR EJECTION FRACTION. NORMAL RIGHT VENTRICULAR SYSTOLIC PRESSURE. NO WALL MOTION ABNORMALITY. NO EFFUSION. TECHNOLOGIST: Eliseo HASKINS
--- NOTE | 2017-11-03 15:40 | EKG ---
Test Date: 2017-11-03 Test Time: 11:03:18 Mechanical Service Representative: JAIR MEASUREMENT RESULTS: Intervals: Rate: 78 VA: 128 QRSD: 78 QT: 404 QTc: 460 Anza: P: 48 VA: 128 QRS: 78 T: 98 INTERPRETIVE STATEMENTS: Sinus rhythm with premature atrial complexes Low voltage QRS ST & T wave abnormality, consider anterior ischemia Abnormal ECG Compared to ECG 10/31/2017 12:20:16 Atrial premature complex(es) now present Low QRS voltage now present Ectopic atrial tachycardia, multifocal no longer present ST (T wave) deviation still present Possible ischemia still present Electronically Signed On 11-03-17 15:40:19 CDT by Hua Oliver
--- NOTE | 2017-11-03 16:26 | P.DS ---
Admission Date: 10/31/17 Discharge Date: 11/03/17 Primary Care Provider: Dr. Levy([place], [place]) Disposition: TRANSFER TO SNF - MEDICAL Discharge Condition: GOOD Reason for Admission: weakness Procedures: MRI/MRA Brain: no acute CVA abnormality ECHO: EF 54%. other unremarkable. CT AB: Mild fatty liver. Otherwise unremarkable for acute findings. CT Head: No acute abnormality. - Problems (1) Fatigue Current Visit: Yes Status: Acute Qualifiers: Fatigue type: unspecified Qualified Code(s): R53.83 - Other fatigue (2) Encephalopathy Current Visit: Yes Status: Acute (3) Hypokalemia Current Visit: Yes Status: Acute (4) Hypomagnesemia Current Visit: Yes Status: Acute (5) Dehydration Current Visit: Yes Status: Acute (6) Alcohol abuse Current Visit: Yes Status: Chronic (7) Elevated liver function tests Onset Date: 11/02/17 Current Visit: Yes Status: Acute (8) Nausea & vomiting Onset Date: 11/02/17 Current Visit: Yes Status: Acute Qualifiers: Vomiting type: unspecified Vomiting Intractability: unspecified Qualified Code(s): R11.2 - Nausea with vomiting, unspecified (9) Urinary tract infection Onset Date: 11/02/17 Current Visit: Yes Status: Acute Qualifiers: Urinary tract infection type: site unspecified Hematuria presence: without hematuria Qualified Code(s): N39.0 - Urinary tract infection, site not specified (10) Hyponatremia Current Visit: Yes Status: Acute (11) GERD (gastroesophageal reflux disease) Current Visit: Yes Status: Suspected Qualifiers: Esophagitis presence: esophagitis presence not specified Qualified Code(s) : K21.9 - Gastro-esophageal reflux disease without esophagitis (12) Risk for falls Current Visit: Yes Status: Chronic Brief History of Present Illness: 72 yo female presented to emergency with with nausea, vomiting. Patient had been recently been evaluated by her PCP for UTI. She was given medication. She was not able to take the medication due to the nausea and vomiting. Patient with history of alcohol abuse. She apparently drinks about 6 -10 beers a day. In the ER patient was evaluated. The patient had multiple abnormal electrolyte abnormalities including hyponatremia, hypokalemia and hypomagnesia. Patient appeared very weak. She was admitted for further evaluation and treatment. Initial CT scan of the head showed no acute changes. Hospital Course: During the course of her stay her electrolyte abnormality improved. Electrolytes were replaced. Patient was continued on IV antibiotic treatment for her UTI. Blood and urine cultures ultimately were negative. Patient had some mild alcohol withdrawal. This resolved. Patient had echocardiogram which was unremarkable. An MRI of the brain was done to rule out stroke. This was negative. At discharge patient will continue with Cipro for 3 more days to complete UTI treatment. UTI prevention will need to be enforced. At discharge patient was evaluated for skilled placement. Patient was approved. At discharge she will go to a skilled facility to continue her care. Due to her history of alcohol abuse, alcohol cessation was addressed in detail. Patient plans to quit. agrees. At discharge because of her malnutrition she will continue with folic acid 1 mg daily, thiamine 100 mg daily and multi vitamin daily. Recommendation is to recheck lab-CBC and BMP in 1 week to monitor progress. Patient may require supplementation if her oral intake is not appropriate. This can be monitored and addressed appropriately by her PCP. Patient may have GERD. She will continue with Protonix 40 mg 1 pill once daily. This can be further evaluated as an outpatient by GI if this persists. Her nausea and vomiting is likely related to this especially with her alcohol abuse. Recommendation on no further use of nonsteroidal anti-inflammatories. Patient has mild fatty liver per CT scan. This can be monitored as outpatient. Fatty liver education will be provided. Patient may require GI evaluation as an outpatient to further address. Patient will continue with physical therapy at the skilled facility to increase her strength and mobility. Recommendation to recheck lab-CBC and BMP in 1 week to monitor progress. Vital Signs/Physical Exam: Temp Pulse Resp BP Pulse Ox 97.4 F 83 18 103/69 96 11/03/17 13:10 11/03/17 13:10 11/03/17 13:10 11/03/17 13:10 11/03/17 13:10 General: Alert, In no apparent distress, Oriented x3, Cooperative HEENT: Atraumatic Neck: Supple Respiratory: Clear to auscultation bilaterally, Normal air movement Cardiovascular: Normal pulses, Regular rate/rhythm Gastrointestinal: Normal bowel sounds, Soft and benign, Non-distended, No tenderness, No masses, No rebound, No guarding Musculoskeletal: No erythema, No tenderness, No warmth Integumentary: No tenderness/swelling, No erythema, No warmth, No cyanosis Neurological: Normal speech, Normal strength at 5/5 x4 extr, Normal tone, Normal affect Laboratory Data at Discharge: WBC 10.9 K/uL (4.3-10.9) 11/03/17 03:43 Hgb 12.7 g/dL (12.0-15.0) 11/03/17 03:43 Hct 37.6 % (36.0-45.0) 11/03/17 03:43 Plt Count 234 K/uL (152-406) 11/03/17 03:43 PT 11.5 SECONDS (9.5-12.5) 10/31/17 12:40 INR 0.97 10/31/17 12:40 APTT 24.1 SECONDS (24.3-36.9) L 10/31/17 12:40 Sodium 133 mmol/L (136-145) L 11/03/17 03:43 Potassium 3.3 mmol/L (3.5-5.1) L 11/03/17 03:43 BUN 4 mg/dL (7-18) L 11/03/17 03:43 Creatinine 0.30 mg/dL (0.55-1.3) L 11/03/17 03:43 Glucose 109 mg/dL (74-106) H 11/03/17 03:43 Phosphorus 3.3 mg/dL (2.5-4.9) 11/01/17 04:02 Magnesium 1.6 mg/dL (1.8-2.4) L 11/03/17 13:28 Total Bilirubin 0.9 mg/dL (0.2-1.0) 11/01/17 04:02 AST 39 U/L (15-37) H 11/01/17 04:02 ALT 21 U/L (12-78) 11/01/17 04:02 Alkaline Phosphatase 122 U/L (45-117) H 11/01/17 04:02 Triglycerides 143 mg/dL (<150) 11/03/17 03:43 Cholesterol 186 mg/dL (<200) 11/03/17 03:43 HDL Cholesterol 42 mg/dL (40-60) 11/03/17 03:43 Cholesterol/HDL Ratio 4.43 11/03/17 03:43 Home Medications: clonazePAM [Clonazepam] 0.5 mg PO BID PRN 10/31/17 Ciprofloxacin HCl [Cipro 500 MG Tablet] 500 mg PO BID #6 tab 11/03/17 Ensure Enlive 237 ml PO BID #60 can 11/03/17 Folic Acid 1 mg PO DAILY #30 tablet 11/03/17 Lopez [Lopez*] 1 pkt PO BID #60 powd.pack 11/03/17 Multivitamin with Iron [Daily Multivitamin with Iron] 1 each PO DAILY #30 tablet 11/03/17 Pantoprazole [Protonix Tab] 40 mg PO DAILY #30 tab 11/03/17 Thiamine HCl 100 mg PO DAILY #30 tablet 11/03/17 New Medications: Ciprofloxacin HCl [Cipro 500 MG Tablet] 500 mg PO BID #6 tab Ensure Enlive 237 ml PO BID #60 can Folic Acid 1 mg PO DAILY #30 tablet Lopez [Lopez*] 1 pkt PO BID #60 powd.pack Multivitamin with Iron [Daily Multivitamin with Iron] 1 each PO DAILY #30 tablet Pantoprazole [Protonix Tab] 40 mg PO DAILY #30 tab Thiamine HCl 100 mg PO DAILY #30 tablet Patient Discharge Instructions: 1. Patient will be transferred to skilled facility to continue rehabilitation. 2. Patient presented with fatigue, nausea and vomiting. This has resolved. Patient with electrolyte abnormalities. This has been resolved and replace. Patient with recent UTI. At discharge she will continue with multi vitamin daily. Patient will continue with Cipro 500 mg 1 pill twice daily for 3 days. UTI prevention will need to be enforced. 3. Patient with history of alcohol abuse. Cessation needs to be continued. Education on cessation will be provided. At discharge patient will continue with thiamine 100 mg daily, folic acid 1 mg daily, and multi vitamin daily. 4. Patient has mild fatty liver. This can be monitored as an outpatient. Hepatitis panel pending at discharge. This can be followed up by her PCP. 5. Patient likely has GERD. Patient will continue with Protonix 40 mg 1 pill once daily. Recommendation on no further use of nonsteroidal anti- inflammatories. 6. Patient will continue with supplementation to increase her oral intake. 7. Patient continue with physical therapy at the skilled facility take increase her strength and mobility. 8. Patient has a history of anxiety. She takes anxiety medication as needed. This will need to be limited and ultimately discontinued if not required. Patient may require psychiatric evaluation as an outpatient to further monitor and address. Diet: AHA Activity: Fall precautions Time spent managing pt's care (in minutes): 55
[2017-11-04 13:41] LABS: HBsAG Nonreactive (Nonreactive); Hepatitis A IgM Antibody Nonreactive
== END 2017-11-03 18:18 | DRG 640 ==
LOC: ER 11:59 → ERHOLD 14:49 → 3RD-ICU 19:13 → 4TH 11-01 16:05
PROVIDERS: ADMIT Internal Medicine; ATTEND Family Medicine
DX: E87.1 Hypo-osmolality and hyponatremia (principal); G92 Toxic encephalopathy; N39.0 Urinary tract infection, site not specified; F10.239 Alcohol dependence with withdrawal, unspecified; E46 Unspecified protein-calorie malnutrition; R53.83 Other fatigue; E87.6 Hypokalemia; E83.42 Hypomagnesemia; E86.0 Dehydration; R11.2 Nausea with vomiting, unspecified; K21.9 Gastro-esophageal reflux disease without esophagitis; K76.0 Fatty (change of) liver, not elsewhere classified; Z91.81 History of falling; F17.210 Nicotine dependence, cigarettes, uncomplicated
CPT/HCPCS: 36415; 51702; 70450; 70544; 70549; 70553; 71045; 74177; 80048; 80053; 80061; 80074; 80076; 80307; 81003; 82550; 82553; 82607; 82746; 82962; 83605; 83615; 83735; 83930; 83935; 83970; 84100; 84132; 84145; 84156; 84300; 84443; 84484; 85025; 85610; 85730; 87040; 87086; 87088; 93005; 93306; 93970; 97163; 99285; A9577; J0696; J1650; J1720; J3411; J3475; J7030; Q9967

== ENCOUNTER 2018-03-16 13:56 | Inpatient (IN) | payer OTHER, BC ==
--- OUTSIDE RECORDS SUMMARY | 2018-03-16 13:58 | XMS REPORT | Clinical Summary ---
:1945 Author Organization [facility] Address [address] [place] [address] Care Team Providers Name Role Phone Tim Harper MD Primary Care Provider Allergies Active Allergy Reactions Severity Noted Date Comments Codeine 01/27/2018 Current Medications Not on file Active Problems Not on file Encounters Date Type Specialty Care Team Description 01/27/2018 Hospital Encounter Radiology Constantine Bland, Abnormal findings on diagnostic imaging of liver and biliary tract; Fatty liver 01/15/2018 Procedure Pass Radiology 01/15/2018 Transcribe Orders Access Constantine Bland, Abnormal findings on diagnostic imaging of liver and biliary tract (Primary Dx); Fatty liver 01/13/2018 Transcribe Orders Access Constantine Bland, Abnormal findings on diagnostic imaging of liver and biliary tract (Primary Dx); Fatty (change of) liver, not elsewhere classified after 03/15/2017 Social History Tobacco Use Types Packs/Day Years Used Date Never Assessed Sex Assigned at Date Recorded Not on file Last Filed Vital Signs Vital Sign Reading Time Taken Blood Pressure - - Pulse - - Temperature - - Respiratory Rate - - Oxygen Saturation - - Inhaled Oxygen Concentration - - Weight 51.7 kg (114 lb) 01/27/2018 1:14 PM CDT Height 170.2 cm (5' 7") 01/27/2018 1:14 PM CDT Body Mass Index 17.85 01/27/2018 1:14 PM CDT Plan of Treatment Health Maintenance Due Date Last Done Comments BREAST CANCER SCREENING 1996 COLON CANCER SCREENING 1996 SHINGRIX VACCINE (#1) 1996 ZOSTER VACCINE 2006 PNEUMOCOCCAL POLYSACCHARIDE VACCINE AGE 65 AND OVER 10/14/2011 PNEUMOCOCCAL-13 10/14/2011 INFLUENZA VACCINE 12/09/2017 Procedures Procedure Name Priority Date/Time Associated Comments Diagnosis MRI ABDOMEN W WO Routine 01/27/2018 2:15 PM Abnormal findings Results for this CONTRAST CDT on diagnostic procedure are in imaging of liver the results and biliary tract section. Fatty liver POC CREATININE Routine 01/27/2018 1:27 PM Results for this CDT procedure are in the results section. ESTIMATED GFR Routine 01/27/2018 1:27 PM Results for this CDT procedure are in the results section. after 03/15/2017 Results MRI Abdomen W Wo Contrast (01/27/2018 2:15 PM) Narrative Performed At EXAMINATION:MRI ABDOMEN W WO CONTRAST [facility] CLINICAL HISTORY:R93.2 Abnormal findings on diagnostic imaging of liver and biliary tract, K76.0 Fatty (change of) livernot elsewhere classified, Abnormal findings on diagnostic imaging of liver and biliary tract Fatty liver TECHNIQUE: Multiplanar multisequence MR images of the abdomen were obtained pre- and post dynamic intravenous administration of Gadolinium.MRCP images were obtained with 3-D reconstructions on the acquisition scanner under concurrent supervision. COMPARISON:None. IMPRESSION: 1. The liver is normal in size and contour, without evidence of steatosis on dual echo chemical shift imaging. There is no hepatic mass identified. 2.The spleen is normal in size. The pancreas and adrenals are within normal limits. 3.There are subcentimeter renal cysts. There is no hydronephrosis or suspicious renal mass. 4.There is cholelithiasis without acute cholecystitis. MRCP images demonstrate normal course and caliber of the common bile duct. There is intrahepatic biliary dilatation. 5.The abdominal aorta is normal in caliber. There is no regional adenopathy. No suspicious osseous lesions are seen.. [facility]-[id number] Procedure Note Interface, Radiology Results Incoming - 01/27/2018 4:22 PM CDT EXAMINATION: MRI ABDOMEN W WO CONTRAST CLINICAL HISTORY: R93.2 Abnormal findings on diagnostic imaging of liver and biliary tract, K76.0 Fatty (change of) liver not elsewhere classified, Abnormal findings on diagnostic imaging of liver and biliary tract Fatty liver TECHNIQUE: Multiplanar multisequence MR images of the abdomen were obtained pre - and post dynamic intravenous administration of Gadolinium. MRCP images were obtained with 3-D reconstructions on the acquisition scanner under concurrent supervision. COMPARISON: None. IMPRESSION: 1. The liver is normal in size and contour, without evidence of steatosis on dual echo chemical shift imaging. There is no hepatic mass identified. 2. The spleen is normal in size. The pancreas and adrenals are within normal limits. 3. There are subcentimeter renal cysts. There is no hydronephrosis or suspicious renal mass. 4. There is cholelithiasis without acute cholecystitis. MRCP images demonstrate normal course and caliber of the common bile duct. There is intrahepatic biliary dilatation. 5. The abdominal aorta is normal in caliber. There is no regional adenopathy. No suspicious osseous lesions are seen.. [facility]-[id number] Performing Organization Address City/[facility]/Zipcode Phone Number [facility] [address] [place] [phone] Estimated GFR (01/27/2018 1:27 PM) Estimated GFR >=90 mL/min/1.73 m2 [facility] DEPARTMENT OF Comment: PATHOLOGY AND GENOMIC CatergoryUnitsInterpretation MEDICINE G1 >=90 Normal or high G2 60-89Mildly decreased [id number] to moderately decreased [id number] to severely decreased G4 15-29Severely decreased G5 <15Kidney failure The eGFR was calculated using the Chronic Kidney Disease Epidemiology Collaboration (CKD-EPI) equation. Interpretation is based on recommendations of the National Kidney Foundation-Kidney Disease Outcomes Quality Initiative (NKF-KDOQI) published in 2014. Specimen Blood Performing Organization Address City/[facility] Number [facility] DEPARTMENT OF PATHOLOGY AND [address] [place] [phone] GENOMIC MEDICINE POC creatinine (01/27/2018 1:27 PM) POC creatinine 0.6 0.5 - 0.9 mg/dl [facility] DEPARTMENT OF PATHOLOGY Comment: AND [facility] MEDICINE Meter ID: [id number] Manager Core: Renetat Hernandez Specimen Blood Performing Organization Address City/[facility] Phone Number [facility] DEPARTMENT OF PATHOLOGY AND [address] [place] [phone] GENOMIC MEDICINE after 03/15/2017 Insurance Payer Benefit Plan / Group Subscriber ID Type Phone Address MEDICARE MEDICARE PART A AND B xxxxxxxxxx Medicare [place], [place] BCBS MELINDA GAVIRIA CROSS xxxxxxxxxxxx PPO Home: [address] [facility] [phone] [place], [place] [id number]
[2018-03-16 14:51] LABS: Absolute Lymphocytes (CBC) 2.5 K/uL (0.7-4.9); Absolute Neutrophil 5.2 K/uL (1.8-8.0); Basophils % 0.7 % (0-1.3); Eosinophils % 1.2 % (0-4.4); Hematocrit 43.1 % (36.0-45.0); Lymphocytes % 28.1 % (15.3-44.8); MPV 8.3 fL (7.6-11.3); Monocytes % 10.9 % (3.3-12.3); RBC Red Blood Cell Count 4.37 M/uL (3.86-4.86)
[2018-03-16 14:54] LABS: Protime INR 0.94
[2018-03-16 15:02] LABS: Albumin 2.8 g/dL (3.4-5.0); Bilirubin Direct 0.3 mg/dL (0-0.2); Bilirubin Total 0.7 mg/dL (0.2-1.0); Magnesium 1.5 mg/dL (1.8-2.4); Protein, Total 7.9 g/dL (6.4-8.2)
--- NOTE | 2018-03-16 15:04 | RAD REPORT ---
EXAM DESCRIPTION: RAD - Chest Single View - 03/16/2018 2:58 pm CLINICAL HISTORY: DYSPNEA Chest pain. COMPARISON: Chest Single View dated 10/31/2017 FINDINGS: Portable technique limits examination quality. The lungs are grossly clear. The heart is normal in size. No displaced fractures. IMPRESSION: No acute intrathoracic process suspected.
[2018-03-16] MEDS ORDERED: MAGNESIUM SULFATE 1 gm IVPB 1 GM/100 ML BAG IV ONE (15:22)
[2018-03-16] MEDS ORDERED: POTASSIUM 25 MEQ EFFERV TAB ONE (15:22)
[2018-03-16] MEDS ORDERED: POTASSIUM CL SA 10 MEQ TAB PO ONE (15:22)
[2018-03-16] MEDS ORDERED: FUROSEMIDE 40 MG/4 ML VIAL ONE (15:22)
--- NOTE | 2018-03-16 16:01 | ER ---
Nurse's Notes [facility] Name: Linnea Randall Age: 72 yrs Sex: Female : 1945 Arrival Date: 03/16/2018 Time: 14:00 Bed 19 Private MD: Diagnosis: Dehydration;Acute kidney failure;Hypomagnesemia;Hypokalemia;Weakness Presentation: 03/16 14:01 Presenting complaint: EMS states: Pt c/o generalized weakness x 2 weeks, for the past jl7 week she has been sliding out her chair due to bilateral lower extremity weakness. C/o left knee pain, edema noted to bilateral legs x 2 months. Transition of care: patient was not received from another setting of care. Onset of symptoms was March 04, 2018. Risk Assessment: Do you want to hurt yourself or someone else? Patient reports no desire to harm self or others. Initial Sepsis Screen: Does the patient meet any 2 criteria? No. Patient's initial sepsis screen is negative. Does the patient have a suspected source of infection? No. Patient's initial sepsis screen is negative. Care prior to arrival: None. 14:01 Method Of Arrival: EMS: [facility] 7 14:01 Acuity: PABLITO 3 jl7 Triage Assessment: 14:06 General: Appears in no apparent distress. uncomfortable, Behavior is cooperative, jl7 anxious. Pain: Complains of pain in left knee Pain does not radiate. Pain currently is 8 out of 10 on a pain scale. Pain began 2 months ago Is continuous. EENT: No signs and/or symptoms were reported regarding the EENT system. Neuro: Level of Consciousness is awake, alert, obeys commands, Oriented to person, place, time, situation, Speech is normal, Facial symmetry appears normal. Cardiovascular: Patient's skin is warm and dry. Respiratory: Airway is patent Respiratory effort is even, unlabored, Respiratory pattern is regular, symmetrical. GI: No signs and/or symptoms were reported involving the gastrointestinal system. : No signs and/or symptoms were reported regarding the genitourinary system. Derm: Skin is pink, warm \T\ dry. Musculoskeletal: Reports weakness in right leg and left leg. Historical: - Allergies: 14:06 PENICILLINS; 14:06 Codeine; all -codone medications; 14:06 Keflex; jl7 - Home Meds: 16:25 clonazepam 0.5 mg Oral tab 1 tab as needed [Active]; Lasix 40 mg Oral tab [Active]; jl7 - PMHx: 14:06 Arthritis; elevated LFT; jl7 - Immunization history:: Adult Immunizations unknown. - Social history:: Smoking status: Patient uses tobacco products, smokes one pack cigarettes per day. Patient uses alcohol, on a daily basis. 2-3 vodka and tonic drinks. - Ebola Screening: : No symptoms or risks identified at this time. - Family history:: not pertinent. - Hospitalizations: : No recent hospitalization is reported. Screenin:05 Abuse screen: Denies threats or abuse. Denies injuries from another. Nutritional jl7 screening: No deficits noted. Tuberculosis screening: No symptoms or risk factors identified. Fall Risk Fall in past 12 months (25 points). IV access (20 points). Ambulatory Aid- None/Bed Rest/Nurse Assist (0 pts). Gait- Weak (10 pts.). Mental Status- Oriented to own ability (0 pts). Total Hastings Fall Scale indicates High Risk Score (45 or more points). Fall prevention measures have been instituted. Side Rails Up X 2 Placed Close to Nursing Station Frequent Obs/Assessments Occuring Family Present and informed to notify staff if the need to leave the bedside As available patient and family educated on Fall Prevention Program and Strategies. Assessment: 15:05 Reassessment: Pt reports last void at 0430, she's drank 3 cups of coffee, an Ensure and jl7 some alcohol. When straight cathed no urine returned. Provider notified, Wilson ordered and placed at this time. 16:15 Reassessment: Wilson reinserted, positive urine return. Dr. Oquendo at bedside discussing jl7 plan of care. Vital Signs: 14:06 BP 110 / 73; Pulse 80; Resp 23 S; Temp 97.5(TE); Pulse Ox 100% on R/A; Weight 47.17 kg jl7 (R); Height 5 ft. 7 in. (170.18 cm) (R); Pain 8/10; 15:05 BP 118 / 86; Pulse 87; Resp 22 S; Pulse Ox 100% on R/A; jl7 15:54 BP 127 / 84; Pulse 111; Resp 17 S; Pulse Ox 100% on R/A; jl7 17:00 BP 129 / 80; Pulse 83; Resp 20 S; Pulse Ox 100% on R/A; jl7 17:59 BP 127 / 83; Pulse 100; Resp 18; Pulse Ox 100% ; jl7 14:06 Body Mass Index 16.29 (47.17 kg, 170.18 cm) jl7 ED Course: 14:00 Patient arrived in ED. jl7 14:00 Patient has correct armband on for positive identification. Placed in gown. Bed in low jl7 position. Call light in reach. Side rails up X 1. teletypesetter monitor on. Pulse ox on. NIBP on. Warm blanket given. 14:01 Adán Sparks MD is Attending Physician. rn 14:04 Triage completed. jl7 14:06 Arm band placed on right wrist. jl7 14:30 Inserted saline lock: 20 gauge in right antecubital area, using aseptic technique. jl7 14:30 Initial lab(s) drawn, by nh, sent to lab. Inserted saline lock: 22 gauge in right jl7 wrist, using aseptic technique. Blood collected. 14:34 Tamia Merchant, JOCELYNE is Primary Nurse. jl7 14:43 EKG done, by safety relief valve technician. reviewed by Adán Sparks MD. sm3 14:58 XRAY Chest (1 view) In Process Unspecified. EDMS 15:11 Wilson cath inserted, using sterile technique, 16 Fr., by nh, balloon inflated, to jl7 gravity drainage, other no urine output at this time. 16:00 Melvin Oquendo MD is Hospitalizing Provider. rn 18:25 No provider procedures requiring assistance completed. Patient admitted, IV remains in jl7 place. intact, No redness/swelling at site. Administered Medications: 15:23 Drug: Potassium Chloride 40 mEq Route: PO; jl7 15:53 Follow up: Response: No adverse reaction jl7 15:24 Drug: Lasix 40 mg Route: IVP; Site: right wrist; jl7 16:31 Follow up: Urine output 500 ml; Response: No adverse reaction jl7 15:24 Drug: Magnesium Sulfate 1 grams Route: IVPB; Infused Over: 1 hrs; Site: right wrist; jl7 16:33 Follow up: Response: No adverse reaction; IV Status: Completed infusion jl7 Output: 16:31 Urine: 500ml; Total: 500ml. jl7 Outcome: 16:01 Decision to Hospitalize by Provider. rn 18:25 Admitted to Tele accompanied by tech, via stretcher, room 232, with chart, Report elida called to JOCELYNE Nicolas 18:25 Condition: stable 18:25 Discharge instructions given to patient, Instructed on the need for admit, Demonstrated understanding of instructions. 18:27 Patient left the ED. elida Signatures: Dispatcher [employer] EDMS Adán Sparks MD MD rn Leal, Jahala, RN RN [email or web address] Alejandrina Cho 3
--- NOTE | 2018-03-16 16:01 | EDPHYS ---
Physician Documentation [facility] Name: Linnea Randall Age: 72 yrs Sex: Female : 1945 Arrival Date: 03/16/2018 Time: 14:00 Bed 19 Private MD: ED Physician Adán Sparks HPI: 03/16 14:38 This 72 yrs old Female presents to ER via EMS with complaints of General rn Weakness. 14:38 Reports generalized weakness for 2 weeks, not able to support herself, + recurrent rn falls. Denies fevers/chills/chest pain/sob/abd pain/vomiting/diarrhea. Reports smokes and drinks daily. + swelling to bilateral legs has been for some time, but weakness is progressive.. Onset: The symptoms/episode began/occurred 2 week(s) ago. Severity of symptoms: At their worst the symptoms were moderate in the emergency department the symptoms are unchanged. The patient has experienced a previous episode. The patient has not recently seen a physician. Historical: - Allergies: 14:06 PENICILLINS; jl7 14:06 Codeine; all -codone medications; jl7 14:06 Keflex; jl7 - Home Meds: 16:25 clonazepam 0.5 mg Oral tab 1 tab as needed [Active]; Lasix 40 mg Oral tab [Active]; jl7 - PMHx: 14:06 Arthritis; elevated LFT; jl7 - Immunization history:: Adult Immunizations unknown. - Social history:: Smoking status: Patient uses tobacco products, smokes one pack cigarettes per day. Patient uses alcohol, on a daily basis. 2-3 vodka and tonic drinks. - Ebola Screening: : No symptoms or risks identified at this time. - Family history:: not pertinent. - Hospitalizations: : No recent hospitalization is reported. ROS: 14:38 Constitutional: Negative for fever, chills, and weight loss, Eyes: Negative for injury, rn pain, redness, and discharge, Neck: Negative for injury, pain, and swelling, Cardiovascular: Negative for chest pain, palpitations, + lower ext edema Respiratory: Negative for pleuritic chest pain Abdomen/GI: Negative for abdominal pain, nausea, vomiting, diarrhea, and constipation, MS/Extremity: Negative for injury and deformity, Skin: + bruising and skin tears from falling Neuro: Negative for headache, numbness, tingling, and seizure. Exam: 14:38 Constitutional: This is a well developed, well nourished patient who is awake, alert, rn and in no acute distress. Head/Face: Normocephalic, atraumatic. Eyes: Pupils equal round and reactive to light, extra-ocular motions intact. Lids and lashes normal. Conjunctiva and sclera are non-icteric and not injected. Cornea within normal limits. Periorbital areas with no swelling, redness, or edema. ENT: dry MM, no stridor Cardiovascular: Irregular rhythm, normal rate, no murmur Respiratory: + mild tachypnea with faint exp wheezing bilaterally, speaking full sentences Abdomen/GI: soft, non-tender MS/ Extremity: Pulses equal, no cyanosis. + bilateral 3+ pitting edema to knees with multiple ecchymosis and healing skin tears/contusions to pre-tibial regions. Neuro: Awake and alert, GCS 15, oriented to person, place, time, and situation. Cranial nerves II-XII grossly intact. Motor strength 4/5 in both arms, 3/5 strength bilateral lower ext. Sensory grossly intact. Vital Signs: 14:06 BP 110 / 73; Pulse 80; Resp 23 S; Temp 97.5(TE); Pulse Ox 100% on R/A; Weight 47.17 kg jl7 (R); Height 5 ft. 7 in. (170.18 cm) (R); Pain 8/10; 15:05 BP 118 / 86; Pulse 87; Resp 22 S; Pulse Ox 100% on R/A; jl7 15:54 BP 127 / 84; Pulse 111; Resp 17 S; Pulse Ox 100% on R/A; jl7 17:00 BP 129 / 80; Pulse 83; Resp 20 S; Pulse Ox 100% on R/A; jl7 17:59 BP 127 / 83; Pulse 100; Resp 18; Pulse Ox 100% ; jl7 14:06 Body Mass Index 16.29 (47.17 kg, 170.18 cm) jl7 MDM: 14:01 Patient medically screened. rn 14:54 ED course: No urinary output with straight cath, patient reports no urine since 0430 rn today. 15:57 Differential Diagnosis Generalized weakness, alcoholic liver disease, dehydration, rn night renal failure. Data reviewed: vital signs, nurses notes, lab test result(s), EKG, radiologic studies, plain films, and as a result, I will admit patient. Counseling: I had a detailed discussion with the patient and/or guardian regarding: the historical points, exam findings, and any diagnostic results supporting the discharge/admit diagnosis, lab results, radiology results, the need for further work-up and treatment in the hospital. Response to treatment: the patient's symptoms have mildly improved after treatment, and as a result, I will admit patient. Admission orders: after a detailed discussion of the patient's condition and case, the admit orders are written by me. ED course: Pt with increased weakness, electrolyte problems, dehydration, possibly in beginning of acute renal failure given no urine output despite pagan catheter since 0430 this AM, swelling in legs, and hemoconcentration. Root of problems most likely alcohol as does well in institutions and does bad with falls and weakness when goes home.. 03/16 14:15 Order name: CBC with Diff; Complete Time: 15:45 rn 03/16 14:15 Order name: Basic Metabolic Panel; Complete Time: 15:08 rn 03/16 14:15 Order name: Protime (+inr); Complete Time: 15:09 rn 03/16 14:15 Order name: Ptt, Activated; Complete Time: 15:09 rn 03/16 14:15 Order name: Urine Microscopic Only rn 03/16 14:15 Order name: Magnesium; Complete Time: 15:08 rn 03/16 14:15 Order name: N-Terminal Pro-brain Natriuretic Peptide; Complete Time: 15:08 rn 03/16 14:15 Order name: XRAY Chest (1 view); Complete Time: 15:08 rn 03/16 14:15 Order name: ETOH Level; Complete Time: 15:08 rn 03/16 14:15 Order name: LFT's; Complete Time: 15:08 rn 03/16 16:29 Order name: Urine Dipstick--Ancillary (enter results) bd 03/16 17:17 Order name: Urine Dipstick-Ancillary EDMS 03/16 14:15 Order name: IV Start; Complete Time: 14:34 rn 03/16 14:15 Order name: EKG; Complete Time: 14:16 rn 03/16 14:15 Order name: EKG - Nurse/Tech; Complete Time: 14:34 rn 03/16 14:15 Order name: Urine Dipstick-Ancillary (obtain specimen); Complete Time: 16:35 rn Administered Medications: 15:23 Drug: Potassium Chloride 40 mEq Route: PO; [facility] 15:53 Follow up: Response: No adverse reaction 7 15:24 Drug: Lasix 40 mg Route: IVP; Site: right wrist; jl7 16:31 Follow up: Urine output 500 ml; Response: No adverse reaction 7 15:24 Drug: Magnesium Sulfate 1 grams Route: IVPB; Infused Over: 1 hrs; Site: right wrist; jl7 16:33 Follow up: Response: No adverse reaction; IV Status: Completed infusion 7 Disposition: 03/16/18 16:01 Hospitalization ordered by Melvin Oquendo for Inpatient Admission. Preliminary diagnosis are Dehydration, Acute kidney failure, Hypomagnesemia, Hypokalemia, Weakness. - Bed requested for Telemetry/MedSurg (Inpatient). - Status is Inpatient Admission. jl7 - Condition is Stable. - Problem is an ongoing problem. - Symptoms have improved. UTI on Admission? No Signatures: Dispatcher [employer] EDMS Keri Earl Roman, MD MD rn Leal, Jahala, RN RN jl7 Corrections: (The following items were deleted from the chart) 17:20 16:01 Hospitalization Ordered by Melvin Oquendo MD for Inpatient Admission. Preliminary bd diagnosis is Dehydration; Acute kidney failure; Hypomagnesemia; Hypokalemia; Weakness. Bed requested for Telemetry/MedSurg (Inpatient). Status is Inpatient Admission. Condition is Stable. Problem is an ongoing problem. Symptoms have improved. UTI on Admission? No. rn 18:27 17:20 03/16/2018 16:01 Hospitalization Ordered by Melvin Oquendo MD for Inpatient jl7 Admission. Preliminary diagnosis is Dehydration; Acute kidney failure; Hypomagnesemia; Hypokalemia; Weakness. Bed requested for Telemetry/MedSurg (Inpatient). Status is Inpatient Admission. Condition is Stable. Problem is an ongoing problem. Symptoms have improved. UTI on Admission? No. bd
[2018-03-16 16:42] LABS: Urine Bacteria LOADED /HPF (<20); Urine Culture Reflex Order REFLEXED; Urine RBC <5 /HPF (NONE SEEN)
[2018-03-16 17:16] LABS: Urine Blood TRACE (NEG); Urine Glucose NEGATIVE (NEG); Urine Protein NEGATIVE (NEG)
--- NOTE | 2018-03-16 17:18 | P.HP ---
Certification for Inpatient Patient admitted to: Inpatient With expected LOS: >2 Midnights Practitioner: I am a practitioner with admitting privileges, knowledge of patient current condition, hospital course, and medical plan of care. Services: Services provided to patient in accordance with Admission requirements found in Title 42 Section 412.3 of the Code of Federal Regulations Patient History Date of Service: 03/16/18 Reason for admission: Weakness, fall History of Present Illness: This is a 72-year-old female with history of alcohol use, multiple admissions for for similar reason most recently discharged 10/2017 admitted for weakness, falls that have been progressively worsening. Patient was unwilling to talk/ answer questions because she wanted to rest and sleep so I was unable to get any history from patient and there is no family at bedside. On chart review, noted that patient had multiple falls and weakness, and has been admitted in the past for similar complaints. In the ER, she received a dose of IV Lasix, or p.o. potassium and IV magnesium. At the time of my examination, patient was resting quietly in bed but is in his eye started asking questions, she started to get agitated and did not want to talk or answer any questions. She was alert and oriented x3. Allergies amoxicillin Allergy (Verified 10/31/17 12:22) Hives Home Medications: clonazePAM [Clonazepam] 0.5 mg PO BID PRN 10/31/17 Ciprofloxacin HCl [Cipro 500 MG Tablet] 500 mg PO BID #6 tab 11/03/17 Ensure Enlive 237 ml PO BID #60 can 11/03/17 Folic Acid 1 mg PO DAILY #30 tablet 11/03/17 Lopez [Lopez*] 1 pkt PO BID #60 powd.pack 11/03/17 Multivitamin with Iron [Daily Multivitamin with Iron] 1 each PO DAILY #30 tablet 11/03/17 Pantoprazole [Protonix Tab] 40 mg PO DAILY #30 tab 11/03/17 Thiamine HCl 100 mg PO DAILY #30 tablet 11/03/17 - Past Medical/Surgical History Diabetic: No -: arthritis -: elevated LFT -: appendectomy - Family History Mother -: Heart disease Notes: CHF - Social History Alcohol use: Yes CD- Drugs: No Caffeine use: Yes Review of Systems is unable to be obtained (Due to patient not wanting to talk or answer questions ) General: Weakness, As per HPI Physical Examination - Physical Exam General: Alert, Oriented x3, Mild distress, Other (Colored just did not want to speak regarding why she was here. Started to cry when I asked questions) HEENT: Atraumatic, PERRLA, Mucous membr. moist/pink, EOMI, Sclerae nonicteric Neck: Supple, 2+ carotid pulse no bruit, No LAD, Without JVD or thyroid abnormality Respiratory: Clear to auscultation bilaterally, Normal air movement Cardiovascular: Normal S1 S2, Irregular heart rate/rhythm Gastrointestinal: Normal bowel sounds, No tenderness Musculoskeletal: No tenderness Integumentary: Skin breakdown, Skin lesion (Multiple cuts, bruises on bilateral lower extremities) Neurological: Other (Unable to perform on neurological exam as patient not cooperative) - Studies Laboratory Data (last 24 hrs) 03/16/18 14:28: PT 11.1, INR 0.94, APTT 27.0 03/16/18 14:28: Sodium 126 L, Potassium 3.0 L, BUN 14, Creatinine 0.70, Glucose 101, Magnesium 1.5 L, Total Bilirubin 0.7, AST 30, ALT 18, Alkaline Phosphatase 130 H 03/16/18 14:28: WBC 8.8, Hgb 15.1 H, Hct 43.1, Plt Count 337 Assessment and Plan - Plan This is a 72-year-old female with: -Weakness Likely a combination of electrolyte imbalance, alcohol abuse Banana bag ordered for IV fluids. Will continue with gentle hydration, as patient is elevated BNP. Monitor for volume overload. Will need Physical therapy evaluation prior to discharge -Multiple falls Likely secondary to alcohol use, possible electrolyte imbalance Physical therapy evaluation prior to discharge Fall precautions -Lower extremity cellulitis, bilaterally Patient with multiple cuts on bilateral lower extremity, swelling, and erythema. Consistent with bilateral lower extremity cellulitis. Until likely from the fall that she has had and swelling could be secondary to CHF versus liver failure versus kidney injury versus alcohol use. Will start IV clindamycin Blood cultures pending -Elevated BNP: This could be secondary to heart failure, liver disease, kidney failure/disease, alcohol use Patient without diagnosis of CHF but states that she is taking Lasix at home ( per ER nurse, has been gave medication list). Not sure where/she was prescribing Lasix but no recent echo noted on file. Will evaluate further with an echo She may need extra doses of Lasix, will re-evaluate tomorrow and order Lasix if needed Monitor with a.m. labs -Hyponatremia -Hypokalemia -Hypomagnesemia Multiple electrolyte abnormalities, she will get IV fluids, gentle hydration is not to volume overload her more. Monitor with 6 hr BMP check and daily a.m. labs. She is on potassium and magnesium protocol. Replete per protocol -History of depression Does not seem to be on any home medications. Monitor. -Tobacco use Will need education on smoking cessation prior to discharge -Alcohol abuse Patient with history of alcohol use, drinks 2-3 vodkas/tonic drinks a day (per ER nurse). Put on alcohol withdrawal Assessment q. 4 hrs. Banana bag ordered. Multivitamin, thiamine and folate ordered Clear Ativan p.r.n. agitation. Monitor for seizure Fall precautions Will need education on alcohol cessation prior to discharge. Possibly some more resources for alcoholics anonymous if she is interested. - COPD Does not seem to be any home medications. Satting well on room air. Ipratropium nebulizer ordered. Oxygen as needed. Will need outpatient follow up for pulmonary function tests. DVT prophylaxis: Lovenox GI prophylaxis: Protonix Diet: Regular Disposition: Admit to acute with telemetry. Monitor for withdrawal symptoms. Pending symptomatic improvement - Advance Directives Does patient have a Living Will: No Does patient have a Durable POA for Healthcare: No Time Spent Managing Pts Care (In Minutes): 45
--- NOTE | 2018-03-16 18:04 | EKG ---
Test Date: 2018-03-16 Test Time: 14:28:23 [employer]: WISAM MEASUREMENT RESULTS: Intervals: Rate: 102 ND: QRSD: 88 QT: 376 QTc: 490 Avery: P: ND: QRS: 5 T: 40 INTERPRETIVE STATEMENTS: Atrial fibrillation with rapid ventricular response with premature ventricular or aberrantly conducted complexes Nonspecific ST abnormality, probably digitalis effect Abnormal ECG Compared to ECG 11/03/2017 11:03:18 Ventricular premature complex(es) now present Sinus rhythm no longer present Atrial premature complex(es) no longer present Possible ischemia no longer present ST (T wave) deviation still present Electronically Signed On 03-16-18 18:03:00 LOAD HAUL DUMP OPERATOR by Hua Oliver
[2018-03-16] MEDS ORDERED: ONDANSETRON 4 MG/2 ML VIAL IV PRN (19:33)
[2018-03-16] MEDS ORDERED: ACETAMINOPHEN 500 MG TAB PO PRN (19:33)
[2018-03-16] MEDS: FOLIC ACID 1 MG, MULTIVITAMINS INJ 10 ML, THIAMINE HCL 100 MG in NA CHLORIDE 0.9% 1,000 ML IV SCH (19:33)
[2018-03-16] MEDS: IPRATROPIUM BROM 0.5MG/2.5ML NEB SCH (20:00)
[2018-03-16] MEDS: chlordiazePOXIDE HCl 25 MG CAP PO SCH (21:10)
[2018-03-16] MEDS ORDERED: MULTIVITAMINS 10 ML VIAL (INJ) IV ONE (22:10)
[2018-03-16] MEDS ORDERED: THIAMINE 200 MG/2 ML INJ ONE (22:10)
[2018-03-16] MEDS ORDERED: NA CHLORIDE 0.9% 1,000 ML ONE (22:10)
[2018-03-16] MEDS ORDERED: FOLIC ACID 5 MG/ML VIAL ONE (22:12)
[2018-03-17] MEDS: CLINDAMYCIN INJ 600 MG in NA CHLORIDE 0.9% 50 ML IV SCH ×3 (01:00→17:07)
[2018-03-17] MEDS ORDERED: CLINDAMYCIN 600MG/D5W 600 MG/50 ML BAG IV ONE (01:06)
[2018-03-17] MEDS ORDERED: NA CHLORIDE 0.9% 50 ML ONE (01:32)
[2018-03-17] MEDS: chlordiazePOXIDE HCl 25 MG CAP PO SCH ×4 (01:44→17:07)
[2018-03-17] MEDS: IPRATROPIUM BROM 0.5MG/2.5ML NEB SCH ×2 (02:00→08:00)
[2018-03-17 05:36] LABS: Absolute Lymphocytes (CBC) 2.3 K/uL (0.7-4.9); Absolute Monocytes 1.1 K/uL (0.1-1.3); Absolute Neutrophil 4.5 K/uL (1.8-8.0); Basophils % 0.9 % (0-1.3); Eosinophils % 2.4 % (0-4.4); Hematocrit 39.5 % (36.0-45.0); Lymphocytes % 28.3 % (15.3-44.8); MPV 7.9 fL (7.6-11.3); Monocytes % 13.2 % (3.3-12.3); RBC Red Blood Cell Count 4.01 M/uL (3.86-4.86)
[2018-03-17 06:01] LABS: ALT/SGPT 16 U/L (12-78); AST/SGOT 30 U/L (15-37); Albumin 2.3 g/dL (3.4-5.0); Alkaline Phosphatase 109 U/L (45-117); BUN Blood Urea Nitrogen 11 mg/dL (7-18); Bicarbonate 31 mmol/L (21-32); Bilirubin Total 0.9 mg/dL (0.2-1.0); Glucose Level 98 mg/dL (74-106); Magnesium 1.8 mg/dL (1.8-2.4); Phosphorus 3.7 mg/dL (2.5-4.9); Potassium 3.2 mmol/L (3.5-5.1); Protein, Total 6.4 g/dL (6.4-8.2); Sodium Level 134 mmol/L (136-145)
[2018-03-17] MEDS ORDERED: PANTOPRAZOLE 40MG TABLET PO SCH (06:30)
[2018-03-17] MEDS ORDERED: MAGNESIUM SULFATE 1 gm IVPB 1 GM/100 ML BAG IV ONE (07:30)
[2018-03-17] MEDS ORDERED: POTASSIUM CL SA 10 MEQ TAB PO ONE (07:30)
[2018-03-17] MEDS: THIAMINE HCL 100 MG TABLET PO SCH (08:54)
[2018-03-17] MEDS: ENOXAPARIN 40 MG/0.4 ML SQ SCH (08:54)
[2018-03-17] MEDS: FOLIC ACID 1 MG TABLET PO SCH (08:54)
[2018-03-17] MEDS: MULTIVITAMIN TAB PO SCH (08:54)
[2018-03-17] MEDS: FOLIC ACID 1 MG, MULTIVITAMINS INJ 10 ML, THIAMINE HCL 100 MG in NA CHLORIDE 0.9% 1,000 ML IV SCH (09:00)
--- NOTE | 2018-03-17 10:39 | ECHO ---
HEIGHT: 5 ft 7 in WEIGHT: 113 lb 14.4 oz DATE OF STUDY: 03/17/[address]: Melvin Oquendo MD 2-DIMENSIONAL: YES M.MODE: YES DOPPLER: YES COLOR FLOW: YES TDS: NO PORTABLE: NO DEFINITY: NO BUBBLE STUDY: NO DIAGNOSIS: ELEVATED TROPONIN CARDIAC HISTORY: CATHERIZATION: NO SURGERY: NO PROSTHETIC VALVE: NO PACEMAKER: NO MEASUREMENTS (cm) DIASTOLIC (NORMALS) SYSTOLIC (NORMALS) IVSd 0.9 (0.6-1.2) LA Diam (1.9-4.0) LVEF 64% LVIDd 4.0 (3.5-5.7) LVIDs 2.6 (2.0-3.5) %FS 34% LVPWd 1.1 (0.6-1.2) Ao Diam 2.8 (2.0-3.7) 2 DIMENSIONAL ASSESSMENT: RIGHT ATRIUM: NORMAL LEFT ATRIUM: NORMAL RIGHT VENTRICLE: NORMAL LEFT VENTRICLE: NORMAL TRICUSPID VALVE: NORMAL MITRAL VALVE: NORMAL PULMONIC VALVE: NORMAL AORTIC VALVE: NORMAL PERICARDIAL EFFUSION: NONE AORTIC ROOT: NORMAL LEFT VENTRICULAR WALL MOTION: NORMAL. DOPPLER/COLOR FLOW: MILD TRICUSPID REGURGITATION. NORMAL RIGHT VENTRICULAR SYSTOLIC PRESSURE. COMMENTS: NORMAL 2D ECHO. MILD TRICUSPID REGURGITATION. TECHNOLOGIST: AXEL LOBO
[2018-03-17] MEDS ORDERED: IPRATROPIUM BROM 0.5MG/2.5ML NEB PRN (12:36)
[2018-03-17 13:56] LABS: BUN Blood Urea Nitrogen 10 mg/dL (7-18); Bicarbonate 31 mmol/L (21-32); Glucose Level 110 mg/dL (74-106); Potassium 3.7 mmol/L (3.5-5.1); Sodium Level 137 mmol/L (136-145)
--- NOTE | 2018-03-17 14:09 | P.PN ---
Subjective Date of Service: 03/17/18 Chief Complaint: Weakness, fall Patient seen and examined at bedside. No family at bedside. Case discussed with nursing staff. Patient will more awake this morning, upset that she has had to repeat herself so many times about why she is in here. She states that "If I knew why I was here, I would tell you and I would not be here." From her story, it seems like she felt Thursday, though states that she did not hit any part of her body, including her head. Still seems a little confused though more alert than yesterday. No acute events overnight. She is currently getting banana bag, thiamine, folate and multivitamin. She has Librium ordered and PRN Ativan, though did not required overnight Denies any chest pain, shortness of breath, nausea, vomiting, abdominal pain, headache, dizziness, vision changes or speech changes. Does report bilateral lower extremity swelling and pain is, though unsure how long it has been there. Review of Systems As noted above Physical Examination - Vital Signs Temperature: 98 F Blood Pressure: 132/71 Pulse: 78 Respirations: 18 Pulse Ox (%): 96 - Physical Exam General: Alert (More alert than yesterday, less sleepy), In no apparent distress , Oriented x3 HEENT: Atraumatic, PERRLA, EOMI Neck: Supple, JVD not distended Respiratory: Clear to auscultation bilaterally, Normal air movement Cardiovascular: Regular rate/rhythm, Normal S1 S2, Edema (2+ pitting edema bilaterally up to Shins) Gastrointestinal: Normal bowel sounds, No tenderness Musculoskeletal: No tenderness Integumentary: Rash(es), Skin breakdown, Tenderness/swelling (Multiple bruises, small open wounds. Warmth, redness and swelling.), Erythema Neurological: Normal speech, Normal tone, Normal affect Lymphatics: No axilla or inguinal lymphadenopathy - Studies Laboratory Data (last 24 hrs) 03/16/18 14:28: PT 11.1, INR 0.94, APTT 27.0 03/16/18 14:28: Sodium 126 L, Potassium 3.0 L, BUN 14, Creatinine 0.70, Glucose 101, Magnesium 1.5 L, Total Bilirubin 0.7, AST 30, ALT 18, Alkaline Phosphatase 130 H 03/16/18 14:28: WBC 8.8, Hgb 15.1 H, Hct 43.1, Plt Count 337 Assessment And Plan - Plan This is a 72-year-old female with: -Weakness Likely a combination of electrolyte imbalance, alcohol abuse Banana bag ordered for IV fluids. Will continue with gentle hydration, as patient is elevated BNP. Monitor for volume overload. Will need Physical therapy evaluation prior to discharge -Multiple falls Likely secondary to alcohol use, possible electrolyte imbalance Physical therapy evaluation prior to discharge Fall precautions - UTI UA with evidence of infection, cultures pending. Continue IV ciprofloxacin. Will adjust as necessary -Lower extremity cellulitis, bilaterally Patient with multiple cuts on bilateral lower extremity, swelling, and erythema. Consistent with bilateral lower extremity cellulitis. Until likely from the fall that she has had and swelling could be secondary to CHF versus liver failure versus kidney injury versus alcohol use. Contain IV clindamycin Blood cultures pending, no growth till date -Elevated BNP: This could be secondary to heart failure, liver disease, kidney failure/disease, alcohol use Patient without diagnosis of CHF but states that she is taking Lasix at home ( per ER nurse, has been gave medication list). Not sure where/she was prescribing Lasix but no recent echo noted on file. Echo done, normal with ejection fraction of 62%. Will give 1 dose of IV Lasix tonight. Monitor with a.m. labs -Hyponatremia: Improved -Hypokalemia improved -Hypomagnesemia improved Multiple electrolyte abnormalities, she will get IV fluids, gentle hydration is not to volume overload her more. Monitor with 6 hr BMP check and daily a.m. labs. She is on potassium and magnesium protocol. Replete per protocol -History of depression Does not seem to be on any home medications. Monitor. -Tobacco use Will need education on smoking cessation prior to discharge -Alcohol abuse Patient with history of alcohol use, drinks 2-3 vodkas/tonic drinks a day (per ER nurse). Put on alcohol withdrawal Assessment q. 4 hrs. Banana bag ordered. Multivitamin, thiamine and folate ordered Librium t.i.d. Ativan p.r.n. agitation. Monitor for seizure Fall precautions Will need education on alcohol cessation prior to discharge. Possibly some more resources for alcoholics anonymous if she is interested. - COPD Does not seem to be any home medications. Satting well on room air. Ipratropium nebulizer ordered. Oxygen as needed. Will need outpatient follow up for pulmonary function tests. DVT prophylaxis: Lovenox GI prophylaxis: Protonix Diet: Regular Disposition: Monitor for withdrawal symptoms. Pending symptomatic improvement Physician Review: Patient Assessed, Agree with Above Assessment and Plan Time Spent Managing PTS Care (In Minutes): 45
[2018-03-17] MEDS: LACTULOSE 20 GM/30 ML UCUP PO SCH ×2 (14:11→20:55)
[2018-03-17] MEDS ORDERED: POTASSIUM 25 MEQ EFFERV TAB PO ONE (15:00)
[2018-03-18] MEDS: chlordiazePOXIDE HCl 25 MG CAP PO SCH ×5 (00:35→23:44)
[2018-03-18] MEDS: CLINDAMYCIN INJ 600 MG in NA CHLORIDE 0.9% 50 ML IV SCH ×3 (01:05→17:10)
[2018-03-18 05:57] LABS: Absolute Lymphocytes (CBC) 2.1 K/uL (0.7-4.9); Absolute Monocytes 0.9 K/uL (0.1-1.3); Eosinophils % 3.8 % (0-4.4); Hematocrit 40.2 % (36.0-45.0); Lymphocytes % 28.3 % (15.3-44.8); MPV 7.8 fL (7.6-11.3); RBC Red Blood Cell Count 3.97 M/uL (3.86-4.86)
[2018-03-18 06:17] LABS: ALT/SGPT 14 U/L (12-78); AST/SGOT 26 U/L (15-37); Albumin 2.1 g/dL (3.4-5.0); Alkaline Phosphatase 99 U/L (45-117); BUN Blood Urea Nitrogen 9 mg/dL (7-18); Bicarbonate 30 mmol/L (21-32); Bilirubin Total 0.7 mg/dL (0.2-1.0); Glucose Level 96 mg/dL (74-106); Potassium 3.7 mmol/L (3.5-5.1); Protein, Total 5.9 g/dL (6.4-8.2); Sodium Level 139 mmol/L (136-145)
[2018-03-18] MEDS ORDERED: POTASSIUM 25 MEQ EFFERV TAB PO ONE (06:47)
[2018-03-18 06:49] LABS: Magnesium 2.1 mg/dL (1.8-2.4)
[2018-03-18] MEDS: FOLIC ACID 1 MG, MULTIVITAMINS INJ 10 ML, THIAMINE HCL 100 MG in NA CHLORIDE 0.9% 1,000 ML IV SCH (09:00)
[2018-03-18] MEDS: MULTIVITAMIN TAB PO SCH (09:42)
[2018-03-18] MEDS: LACTULOSE 20 GM/30 ML UCUP PO SCH ×3 (09:42→20:37)
[2018-03-18] MEDS: FOLIC ACID 1 MG TABLET PO SCH (09:43)
[2018-03-18] MEDS: ENOXAPARIN 40 MG/0.4 ML SQ SCH (09:43)
[2018-03-18] MEDS: THIAMINE HCL 100 MG TABLET PO SCH (09:44)
[2018-03-18] MEDS: PANTOPRAZOLE 40MG TABLET PO SCH (09:44)
--- NOTE | 2018-03-18 18:42 | P.PN ---
Subjective Date of Service: 03/18/18 Chief Complaint: Weakness, fall Patient seen and examined at bedside. at bedside. Case discussed with nursing staff. Patient more awake this morning, states she is feeling better. Denies any chest pain, shortness of breath, nausea, vomiting, abdominal pain, headache, dizziness, vision changes or speech changes. Review of Systems As noted Physical Examination - Vital Signs Temperature: 97.8 F Blood Pressure: 151/75 Pulse: 82 Respirations: 18 Pulse Ox (%): 97 - Physical Exam General: Alert, In no apparent distress HEENT: Atraumatic, PERRLA, EOMI Neck: Supple, JVD not distended Respiratory: Clear to auscultation bilaterally, Normal air movement Cardiovascular: Regular rate/rhythm, Normal S1 S2 Gastrointestinal: Normal bowel sounds, No tenderness Musculoskeletal: No tenderness Integumentary: Rash(es), Skin breakdown, Skin lesion, Tenderness/swelling Neurological: Normal speech, Normal tone, Normal affect Lymphatics: No axilla or inguinal lymphadenopathy Assessment And Plan - Plan This is a 72-year-old female with: -Weakness Likely a combination of electrolyte imbalance, alcohol abuse Banana bag ordered for IV fluids. Will continue with gentle hydration, as patient is elevated BNP. Monitor for volume overload. Will need Physical therapy evaluation prior to discharge -Multiple falls Likely secondary to alcohol use, possible electrolyte imbalance Physical therapy evaluation prior to discharge Fall precautions Discussed extensively/counseled on alcohol cessation - UTI UA with evidence of infection, cultures with he coli, sensitive to cephalosporins. Will discontinue IV ciprofloxacin and start IV Rocephin. -Lower extremity cellulitis, bilaterally Patient with multiple cuts on bilateral lower extremity, swelling, and erythema. Consistent with bilateral lower extremity cellulitis. likely from the fall that she has had and swelling could be secondary to CHF versus liver failure versus kidney injury versus alcohol use. Blood cultures pending, no growth till date -Elevated BNP: This could be secondary to heart failure, liver disease, kidney failure/disease, alcohol use Patient without diagnosis of CHF but states that she is taking Lasix at home ( per ER nurse, has been gave medication list). Not sure where/she was prescribing Lasix but no recent echo noted on file. Echo done, normal with ejection fraction of 62%. Will give 1 dose of IV Lasix tonight. Monitor with a.m. labs -Hyponatremia: Resolved -Hypokalemia resolved -Hypomagnesemia resolved She is on potassium and magnesium protocol. Replete per protocol -History of depression Does not seem to be on any home medications. Monitor. -Tobacco use Will need education on smoking cessation prior to discharge -Alcohol abuse Patient with history of alcohol use, drinks 2-3 vodkas/tonic drinks a day (per ER nurse). Put on alcohol withdrawal Assessment q. 4 hrs. Banana bag ordered. Multivitamin, thiamine and folate ordered Librium t.i.d. Ativan p.r.n. agitation. Monitor for seizure Fall precautions Discussed extensively/counseled alcohol cessation prior to discharge. Possibly some more resources for alcoholics anonymous if she is interested. - COPD Does not seem to be any home medications. Satting well on room air. Ipratropium nebulizer ordered. Oxygen as needed. Will need outpatient follow up for pulmonary function tests. DVT prophylaxis: Lovenox GI prophylaxis: Protonix Diet: Regular Disposition: Monitor for withdrawal symptoms. Pending symptomatic improvement. Likely discharge home tomorrow Physician Review: Patient Assessed, Agree with Above Assessment and Plan Time Spent Managing PTS Care (In Minutes): 55
[2018-03-18] MEDS: CEFTRIAXONE/SWI 1gm 1 GM/10 ML SYR IVP SCH (20:36)
[2018-03-18] MEDS: PROMOD 30 ML DOSE PO SCH (20:37)
[2018-03-18] MEDS: LORazepam 2 MG/ML VIAL IV PRN (22:33)
[2018-03-19 04:54] LABS: Absolute Monocytes 0.9 K/uL (0.1-1.3); Absolute Neutrophil 4.5 K/uL (1.8-8.0); Basophils % 0.7 % (0-1.3); Hematocrit 40.2 % (36.0-45.0); Lymphocytes % 25.7 % (15.3-44.8); MPV 8.1 fL (7.6-11.3); Monocytes % 11.6 % (3.3-12.3); RBC Red Blood Cell Count 4.07 M/uL (3.86-4.86)
[2018-03-19 05:07] LABS: ALT/SGPT 13 U/L (12-78); AST/SGOT 21 U/L (15-37); Albumin 2.3 g/dL (3.4-5.0); Alkaline Phosphatase 109 U/L (45-117); BUN Blood Urea Nitrogen 6 mg/dL (7-18); Bicarbonate 28 mmol/L (21-32); Bilirubin Total 0.6 mg/dL (0.2-1.0); Glucose Level 101 mg/dL (74-106); Potassium 3.4 mmol/L (3.5-5.1); Protein, Total 6.3 g/dL (6.4-8.2); Sodium Level 136 mmol/L (136-145)
[2018-03-19] MEDS ORDERED: POTASSIUM 25 MEQ EFFERV TAB PO ONE (05:10)
[2018-03-19] MEDS: chlordiazePOXIDE HCl 25 MG CAP PO SCH ×3 (05:27→17:47)
[2018-03-19] MEDS: FOLIC ACID 1 MG, MULTIVITAMINS INJ 10 ML, THIAMINE HCL 100 MG in NA CHLORIDE 0.9% 1,000 ML IV SCH (09:00)
[2018-03-19] MEDS: PROMOD 30 ML DOSE PO SCH ×2 (09:00→20:43)
[2018-03-19] MEDS: LACTULOSE 20 GM/30 ML UCUP PO SCH ×3 (09:37→20:43)
[2018-03-19] MEDS: ENOXAPARIN 40 MG/0.4 ML SQ SCH (09:37)
[2018-03-19] MEDS: PANTOPRAZOLE 40MG TABLET PO SCH (09:37)
[2018-03-19] MEDS: THIAMINE HCL 100 MG TABLET PO SCH (09:37)
[2018-03-19] MEDS: FOLIC ACID 1 MG TABLET PO SCH (09:37)
[2018-03-19] MEDS: CEFTRIAXONE/SWI 1gm 1 GM/10 ML SYR IVP SCH (09:38)
[2018-03-19] MEDS: MULTIVITAMIN TAB PO SCH (09:44)
--- NOTE | 2018-03-19 15:07 | P.PN ---
Subjective Date of Service: 03/19/18 Chief Complaint: Weakness, fall Patient seen and examined at bedside. at bedside. Case discussed with nursing staff. Patient more awake this morning, states she is feeling better. Though seemed to think she was at the nursing facility. Little more confused this morning Denies any chest pain, shortness of breath, nausea, vomiting, abdominal pain, headache, dizziness, vision changes or speech changes. Review of Systems As noted above Physical Examination - Vital Signs Temperature: 97.0 F Blood Pressure: 170/87 Pulse: 80 Respirations: 16 Pulse Ox (%): 97 - Physical Exam General: Alert, In no apparent distress HEENT: Atraumatic, PERRLA, EOMI Neck: Supple, JVD not distended Respiratory: Clear to auscultation bilaterally, Normal air movement Cardiovascular: Regular rate/rhythm, Normal S1 S2 Gastrointestinal: Normal bowel sounds, No tenderness Musculoskeletal: No tenderness Integumentary: Rash(es), Skin lesion Assessment And Plan - Plan This is a 72-year-old female with: - Toxic encephalopathy, likely secondary to alcohol use Continue with supportive care. Discussed progressive nature of disease. to discuss her Medicare pending bed at [facility] for potential transfer there as patient would not be a safe discharge home. -Weakness Likely a combination of electrolyte imbalance, alcohol abuse Banana bag ordered for IV fluids. Will continue with gentle hydration, as patient is elevated BNP. Monitor for volume overload. Will need Physical therapy evaluation prior to discharge -Multiple falls Likely secondary to alcohol use, possible electrolyte imbalance Physical therapy evaluation prior to discharge Fall precautions Discussed extensively/counseled on alcohol cessation - UTI UA with evidence of infection, cultures with he coli, sensitive to cephalosporins. Will discontinue IV ciprofloxacin and start IV Rocephin. -Lower extremity cellulitis, bilaterally Patient with multiple cuts on bilateral lower extremity, swelling, and erythema. Consistent with bilateral lower extremity cellulitis. likely from the fall that she has had and swelling could be secondary to CHF versus liver failure versus kidney injury versus alcohol use. Blood cultures pending, no growth till date -Elevated BNP: This could be secondary to heart failure, liver disease, kidney failure/disease, alcohol use Patient without diagnosis of CHF but states that she is taking Lasix at home ( per ER nurse, has been gave medication list). Not sure where/she was prescribing Lasix but no recent echo noted on file. Echo done, normal with ejection fraction of 62%. Will give 1 dose of IV Lasix tonight. Monitor with a.m. labs -Hyponatremia: Resolved -Hypokalemia resolved -Hypomagnesemia resolved She is on potassium and magnesium protocol. Replete per protocol -History of depression Does not seem to be on any home medications. Monitor. -Tobacco use Will need education on smoking cessation prior to discharge -Alcohol abuse with intoxication Patient with history of alcohol use, drinks 2-3 vodkas/tonic drinks a day (per ER nurse). Put on alcohol withdrawal Assessment q. 4 hrs. Banana bag ordered. Multivitamin, thiamine and folate ordered Librium t.i.d. Ativan p.r.n. agitation. Monitor for seizure Fall precautions Discussed extensively/counseled alcohol cessation prior to discharge. Possibly some more resources for alcoholics anonymous if she is interested. - COPD Does not seem to be any home medications. Satting well on room air. Ipratropium nebulizer ordered. Oxygen as needed. Will need outpatient follow up for pulmonary function tests. - malnutrition: Albumin 2.1 - stage I pressure ulcer DVT prophylaxis: Lovenox GI prophylaxis: Protonix Diet: Regular Disposition: Medically stable at this time, pending Medicare and at [facility]. She is not considered a safe discharge home as cannot help transport her and she is unable to even sit up/walk on her own. Monitor for withdrawal symptoms. Physician Review: Patient Assessed, Agree with Above Assessment and Plan Time Spent Managing PTS Care (In Minutes): 55
[2018-03-19] MEDS ORDERED: POTASSIUM CL SA 10 MEQ TAB PO ONE (20:12)
--- NOTE | 2018-03-19 21:37 | CON ---
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 History Of Present Illness: Ms. Randall is a 72-year-old patient, who per the patient and her husb and who is in the room, admits to at least a 40-50 year history of heavy alcohol abuse. The patient is in with alcohol-related confusion as indicated. Her said that up to 5 weeks ago, she was at [facility] after becoming diffusely weak because of excessive drinking. She spent 90 days in [facility] and then went home 5 weeks ago. At that time, he said he allowed her to resum e her alcohol consumption, drinking up to 10 mixed drinks of vodka and other alcoholic beverages tawny y. However, at that time, she became progressively weak and was unable to support herself standing a nd began falling very frequently, actually about 2 weeks ago when she was unable to walk since that t ashely. She also has been smoking on a regular basis. She said the left knee is mostly bent and is sam ble to be extended fully and that too is a contributing factor in terms of her inability to walk. Ov er that time, she has had episodes of confusion with delusions, paranoid ideation, seeing things that are not there, hearing things that are not present, and having confusing thoughts. Victoriano faria, her chest x-ray showed no acute processes. Electrocardiogram showed atrial fibrillation with ra pid ventricular response and premature ventricular and aberrant conductive complexes. An echocardiog kizzy showed ejection fraction of 64% and was a normal study, except for mild tricuspid regurgitation. She had mild electrolyte abnormalities with slightly low sodium, potassium, and chloride. Her liver function studies were unremarkable, except for slightly elevated direct bilirubin of 0.3 and slightl y elevated alkaline phosphatase of 130. Albumin was low. Urinalysis showed positive nitrites, loade d with bacteria, and too numerous to count white blood cells. Plasma alcohol level was elevated at 8 4 when normal is less than 3. Past Medical History: As indicated in addition to anxiety and arthritis. Medications: At home, clonazepam 0.5 mg as needed, Lasix 40 mg daily. Allergies: PENICILLIN, CODEINE, KEFLEX. Family History: Noncontributory. Social History: As indicated, the patient drinks about 8-10 mixed drinks daily. Smokes a pack of ci garettes daily. No IV drugs. Review of Systems: As indicated, she has been diffusely weak over the last several weeks, unable to walk for about 2 wee ks. She also has marked anxiety, which her says she gets by drinking alcohol. No recent chi lls or fevers. She has some myalgias and arthralgias. No rash, headache, weight change. Physical Examination: Vital Signs: Blood pressure ranged 123 to 170 over 67 to 87, pulse ranged from 75-85, respiratory ra te from 14-18, temperature 98.5, oxygen saturation 97% on room air, weight 113 pounds, height 5 feet 7 inches, BMI 17.7. General: Ms. Randall is resting in bed. She is in no acute distress. HEENT: She is normocephalic and atraumatic. Sclerae anicteric. Oropharynx is moist. Extremities: She does have some mild edema in the lower extremities, worse on the left than the righ t side, all the way to the knee in the left and the knee is held in a slightly flexed about 15-20 deg ree position. She has difficulty extending the left knee. Abdomen: Soft. No fluid wave detected. Neurological: She is alert, oriented to person and situation. She follows simple commands without d ifficulty. She does have confabulation in her answers. No summer hallucinations at this time. Crani al nerves show no focal deficits. On motor examination, the upper extremities are diffusely weak at 4+/5 and the lower extremity, on the right side, 4/5. On the left side, unable to extend the knee. Sensory exam, she has a stocking-glove loss to light touch temperature. Reflexes absent in upper and lower extremities. Coordination is intact in upper extremities and some ataxia noted in the lower e xtremities. Unable to assess gait, as she is nonambulatory at this time. Assessment: Ms. 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 She has unexpectedly normal liver function studies given her long history of alcohol use . She has no evidence of a focal neurological deficit. Plan: 1.Continue with high-dose thiamine, folic acid, and multivitamin daily. 2.Continue with benzodiazepine, a slow taper to help reduce risk of alcohol withdrawal seizures. 3.The patient should be enrolled in an alcohol cessation program. 4.It may benefit the patient's from also being involved in such program. 5.She may be discharged once she is medically stable and follow up with Dr. Hdez in 1 month. CODEY Voice ID: [id number] Report ID: [id number]
[2018-03-20] MEDS: chlordiazePOXIDE HCl 25 MG CAP PO SCH ×3 (00:38→12:10)
[2018-03-20 05:09] LABS: Absolute Lymphocytes (CBC) 2.2 K/uL (0.7-4.9); Absolute Monocytes 0.8 K/uL (0.1-1.3); Absolute Neutrophil 3.9 K/uL (1.8-8.0); Eosinophils % 4.3 % (0-4.4); Hematocrit 40.5 % (36.0-45.0); Lymphocytes % 30.4 % (15.3-44.8); MPV 8.2 fL (7.6-11.3); Monocytes % 11.1 % (3.3-12.3); RBC Red Blood Cell Count 4.07 M/uL (3.86-4.86)
[2018-03-20 05:27] LABS: ALT/SGPT 13 U/L (12-78); AST/SGOT 19 U/L (15-37); Albumin 2.2 g/dL (3.4-5.0); Alkaline Phosphatase 109 U/L (45-117); BUN Blood Urea Nitrogen 9 mg/dL (7-18); Bicarbonate 27 mmol/L (21-32); Bilirubin Total 0.5 mg/dL (0.2-1.0); Glucose Level 97 mg/dL (74-106); Potassium 3.8 mmol/L (3.5-5.1); Protein, Total 6.3 g/dL (6.4-8.2); Sodium Level 137 mmol/L (136-145)
[2018-03-20] MEDS: PROMOD 30 ML DOSE PO SCH ×2 (09:00→20:39)
[2018-03-20] MEDS ORDERED: POTASSIUM CL SA 10 MEQ TAB PO ONE (09:00)
[2018-03-20] MEDS: MULTIVITAMIN TAB PO SCH (10:04)
[2018-03-20] MEDS: LACTULOSE 20 GM/30 ML UCUP PO SCH ×3 (10:04→20:38)
[2018-03-20] MEDS: FOLIC ACID 1 MG, MULTIVITAMINS INJ 10 ML, THIAMINE HCL 100 MG in NA CHLORIDE 0.9% 1,000 ML IV SCH (10:04)
[2018-03-20] MEDS: FOLIC ACID 1 MG TABLET PO SCH (10:04)
[2018-03-20] MEDS: PANTOPRAZOLE 40MG TABLET PO SCH (10:05)
[2018-03-20] MEDS: ENOXAPARIN 40 MG/0.4 ML SQ SCH (10:05)
[2018-03-20] MEDS: THIAMINE HCL 100 MG TABLET PO SCH (10:06)
[2018-03-20] MEDS: CEFTRIAXONE/SWI 1gm 1 GM/10 ML SYR IVP SCH (10:06)
--- NOTE | 2018-03-20 15:46 | P.PN ---
Subjective Date of Service: 03/20/18 Chief Complaint: Weakness, fall Patient seen and examined at bedside. at bedside. Case discussed with nursing staff. Patient more awake this morning, states she is feeling better. Denies any chest pain, shortness of breath, nausea, vomiting, abdominal pain, headache, dizziness, vision changes or speech changes. Review of Systems As noted Physical Examination - Vital Signs Temperature: 96.8 F Blood Pressure: 116/67 Pulse: 80 Respirations: 17 Pulse Ox (%): 97 - Physical Exam General: Alert, In no apparent distress HEENT: Atraumatic, PERRLA, EOMI Neck: Supple, JVD not distended Respiratory: Clear to auscultation bilaterally, Normal air movement Cardiovascular: Regular rate/rhythm, Normal S1 S2 Gastrointestinal: Normal bowel sounds, No tenderness Musculoskeletal: No tenderness Integumentary: Rash(es), Skin breakdown, Skin lesion Neurological: Normal speech, Normal tone, Normal affect Lymphatics: No axilla or inguinal lymphadenopathy Assessment And Plan - Plan This is a 72-year-old female with: - Toxic encephalopathy, likely secondary to alcohol use Continue with supportive care. Discussed progressive nature of disease. to discuss her Medicare pending bed at [facility] for potential transfer there as patient would not be a safe discharge home. -Weakness Likely a combination of electrolyte imbalance, alcohol abuse Banana bag ordered for IV fluids. Will continue with gentle hydration, as patient is elevated BNP. Monitor for volume overload. Will need Physical therapy evaluation prior to discharge -Multiple falls Likely secondary to alcohol use, possible electrolyte imbalance Physical therapy evaluation prior to discharge Fall precautions Discussed extensively/counseled on alcohol cessation - UTI UA with evidence of infection, cultures with he coli, sensitive to cephalosporins. Will discontinue IV ciprofloxacin and start IV Rocephin. -Lower extremity cellulitis, bilaterally Patient with multiple cuts on bilateral lower extremity, swelling, and erythema. Consistent with bilateral lower extremity cellulitis. likely from the fall that she has had and swelling could be secondary to CHF versus liver failure versus kidney injury versus alcohol use. Blood cultures pending, no growth till date -Elevated BNP: This could be secondary to heart failure, liver disease, kidney failure/disease, alcohol use Patient without diagnosis of CHF but states that she is taking Lasix at home ( per ER nurse, has been gave medication list). Not sure where/she was prescribing Lasix but no recent echo noted on file. Echo done, normal with ejection fraction of 62%. Will give 1 dose of IV Lasix tonight. Monitor with a.m. labs -Hyponatremia: Resolved -Hypokalemia resolved -Hypomagnesemia resolved She is on potassium and magnesium protocol. Replete per protocol -History of depression Does not seem to be on any home medications. Monitor. -Tobacco use Will need education on smoking cessation prior to discharge -Alcohol abuse with intoxication Patient with history of alcohol use, drinks 2-3 vodkas/tonic drinks a day (per ER nurse). Put on alcohol withdrawal Assessment q. 4 hrs. Banana bag ordered. Multivitamin, thiamine and folate ordered Librium t.i.d. Ativan p.r.n. agitation. Monitor for seizure Fall precautions Discussed extensively/counseled alcohol cessation prior to discharge. Possibly some more resources for alcoholics anonymous if she is interested. - COPD Does not seem to be any home medications. Satting well on room air. Ipratropium nebulizer ordered. Oxygen as needed. Will need outpatient follow up for pulmonary function tests. - malnutrition: Albumin 2.1 - stage I pressure ulcer DVT prophylaxis: Lovenox GI prophylaxis: Protonix Diet: Regular Disposition: Medically stable at this time, pending Medicare and at [facility]. She is not considered a safe discharge home as cannot help transport her and she is unable to even sit up/walk on her own. Monitor for withdrawal symptoms. Physician Review: Patient Assessed, Agree with Above Assessment and Plan Time Spent Managing PTS Care (In Minutes): 35
[2018-03-21 05:16] LABS: Absolute Lymphocytes (CBC) 2.2 K/uL (0.7-4.9); Absolute Monocytes 0.8 K/uL (0.1-1.3); Absolute Neutrophil 3.7 K/uL (1.8-8.0); Basophils % 0.9 % (0-1.3); Eosinophils % 4.3 % (0-4.4); Hematocrit 41.4 % (36.0-45.0); Lymphocytes % 31.3 % (15.3-44.8); MPV 8.1 fL (7.6-11.3); Monocytes % 11.4 % (3.3-12.3); RBC Red Blood Cell Count 4.16 M/uL (3.86-4.86)
[2018-03-21 05:40] LABS: ALT/SGPT 13 U/L (12-78); AST/SGOT 22 U/L (15-37); Albumin 2.2 g/dL (3.4-5.0); Alkaline Phosphatase 110 U/L (45-117); BUN Blood Urea Nitrogen 10 mg/dL (7-18); Bicarbonate 26 mmol/L (21-32); Bilirubin Total 0.5 mg/dL (0.2-1.0); Glucose Level 96 mg/dL (74-106); Potassium 3.6 mmol/L (3.5-5.1); Protein, Total 6.4 g/dL (6.4-8.2); Sodium Level 140 mmol/L (136-145)
[2018-03-21] MEDS: MULTIVITAMIN TAB PO SCH (08:29)
[2018-03-21] MEDS: FOLIC ACID 1 MG TABLET PO SCH (08:29)
[2018-03-21] MEDS: LACTULOSE 20 GM/30 ML UCUP PO SCH ×3 (08:29→21:22)
[2018-03-21] MEDS: PANTOPRAZOLE 40MG TABLET PO SCH (08:30)
[2018-03-21] MEDS: CEFTRIAXONE/SWI 1gm 1 GM/10 ML SYR IVP SCH (08:30)
[2018-03-21] MEDS: ENOXAPARIN 40 MG/0.4 ML SQ SCH (08:30)
[2018-03-21] MEDS: PROMOD 30 ML DOSE PO SCH ×2 (08:30→21:22)
[2018-03-21] MEDS: THIAMINE HCL 100 MG TABLET PO SCH (08:30)
[2018-03-21] MEDS ORDERED: POTASSIUM CL SA 10 MEQ TAB PO ONE (09:00)
--- NOTE | 2018-03-21 22:43 | P.PN ---
Subjective Date of Service: 03/21/18 Chief Complaint: Weakness, fall Patient seen and examined at bedside. at bedside. Case discussed with nursing staff. Patient more awake this morning, states she is feeling better. States she would like to go smoke. Stated that she would like the nurse or doctor to take her out to smoke. Denies any chest pain, shortness of breath, nausea, vomiting, abdominal pain, headache, dizziness, vision changes or speech changes. Review of Systems As noted Physical Examination - Vital Signs Temperature: 97.8 F Blood Pressure: 136/67 Pulse: 75 Respirations: 16 Pulse Ox (%): 98 - Physical Exam General: Alert, In no apparent distress, Confused HEENT: Atraumatic, PERRLA, EOMI Neck: Supple, JVD not distended Respiratory: Clear to auscultation bilaterally, Normal air movement Cardiovascular: Regular rate/rhythm, Normal S1 S2 Gastrointestinal: Normal bowel sounds, No tenderness Musculoskeletal: No tenderness Integumentary: No rashes Neurological: Normal speech, Normal tone, Normal affect Assessment And Plan - Plan This is a 72-year-old female with: - Toxic encephalopathy, likely secondary to alcohol use Continue with supportive care. Discussed progressive nature of disease. to discuss her Medicare pending bed at [facility] for potential transfer there as patient would not be a safe discharge home. -Weakness Likely a combination of electrolyte imbalance, alcohol abuse Banana bag ordered for IV fluids. Will continue with gentle hydration, as patient is elevated BNP. Monitor for volume overload. Will need Physical therapy evaluation prior to discharge -Multiple falls Likely secondary to alcohol use, possible electrolyte imbalance Physical therapy evaluation prior to discharge Fall precautions Discussed extensively/counseled on alcohol cessation - UTI UA with evidence of infection, cultures with he coli, sensitive to cephalosporins. Will discontinue IV ciprofloxacin and start IV Rocephin. -Lower extremity cellulitis, bilaterally Patient with multiple cuts on bilateral lower extremity, swelling, and erythema. Consistent with bilateral lower extremity cellulitis. likely from the fall that she has had and swelling could be secondary to CHF versus liver failure versus kidney injury versus alcohol use. Blood cultures pending, no growth till date -Elevated BNP: This could be secondary to heart failure, liver disease, kidney failure/disease, alcohol use Patient without diagnosis of CHF but states that she is taking Lasix at home ( per ER nurse, has been gave medication list). Not sure where/she was prescribing Lasix but no recent echo noted on file. Echo done, normal with ejection fraction of 62%. Will give 1 dose of IV Lasix tonight. Monitor with a.m. labs -Hyponatremia: Resolved -Hypokalemia resolved -Hypomagnesemia resolved She is on potassium and magnesium protocol. Replete per protocol -History of depression Does not seem to be on any home medications. Monitor. -Tobacco use Will need education on smoking cessation prior to discharge Offered patient nicotine patch, she refused. -Alcohol abuse with intoxication Patient with history of alcohol use, drinks 2-3 vodkas/tonic drinks a day (per ER nurse). Put on alcohol withdrawal Assessment q. 4 hrs. Banana bag ordered. Multivitamin, thiamine and folate ordered Librium t.i.d. Ativan p.r.n. agitation. Monitor for seizure Fall precautions Discussed extensively/counseled alcohol cessation prior to discharge. Possibly some more resources for alcoholics anonymous if she is interested. - COPD Does not seem to be any home medications. Satting well on room air. Ipratropium nebulizer ordered. Oxygen as needed. Will need outpatient follow up for pulmonary function tests. - malnutrition: Albumin 2.1 - stage I pressure ulcer DVT prophylaxis: Lovenox GI prophylaxis: Protonix Diet: Regular Disposition: Medically stable at this time, pending Medicare and at [facility]. She is not considered a safe discharge home as cannot help transport her and she is unable to even sit up/walk on her own. Monitor for withdrawal symptoms. Physician Review: Patient Assessed, Agree with Above Assessment and Plan
[2018-03-21] MEDS: LORazepam 2 MG/ML VIAL IV PRN (23:51)
[2018-03-22 05:48] LABS: BUN Blood Urea Nitrogen 15 mg/dL (7-18); Bicarbonate 28 mmol/L (21-32); Glucose Level 103 mg/dL (74-106); Magnesium 1.7 mg/dL (1.8-2.4); Phosphorus 4.2 mg/dL (2.5-4.9); Potassium 3.6 mmol/L (3.5-5.1); Sodium Level 140 mmol/L (136-145)
[2018-03-22] MEDS ORDERED: MAGNESIUM SULFATE 1 gm IVPB 1 GM/100 ML BAG IV ONE (06:03)
[2018-03-22] MEDS: LACTULOSE 20 GM/30 ML UCUP PO SCH ×2 (09:00→14:00)
[2018-03-22] MEDS: POTASSIUM CL SA 10 MEQ TAB PO ONE ×2 (09:00→11:11)
[2018-03-22] MEDS: ENOXAPARIN 40 MG/0.4 ML SQ SCH (09:40)
[2018-03-22] MEDS: CEFTRIAXONE/SWI 1gm 1 GM/10 ML SYR IVP SCH (09:41)
[2018-03-22] MEDS: PANTOPRAZOLE 40MG TABLET PO SCH (11:11)
[2018-03-22] MEDS: MULTIVITAMIN TAB PO SCH (11:11)
[2018-03-22] MEDS: THIAMINE HCL 100 MG TABLET PO SCH (11:11)
[2018-03-22] MEDS: FOLIC ACID 1 MG TABLET PO SCH (11:12)
[2018-03-22] MEDS: PROMOD 30 ML DOSE PO SCH (11:13)
--- NOTE | 2018-04-23 13:22 | P.DS ---
Admission Date: 03/16/18 Discharge Date: 04/23/18 Disposition: TRANSFER TO LONGTERM Discharge Condition: FAIR Reason for Admission: Weakness, fall Consultations: Dr. Hdez, Neurology Brief History of Present Illness: This is a 72-year-old female with history of alcohol use, multiple admissions for for similar reason most recently discharged 10/2017 admitted for weakness, falls that have been progressively worsening. Patient was unwilling to talk/ answer questions because she wanted to rest and sleep so I was unable to get any history from patient and there is no family at bedside. On chart review, noted that patient had multiple falls and weakness, and has been admitted in the past for similar complaints. In the ER, she received a dose of IV Lasix, or p.o. potassium and IV magnesium. At the time of my examination, patient was resting quietly in bed but is in his eye started asking questions, she started to get agitated and did not want to talk or answer any questions. She was alert and oriented x3. Hospital Course: - Toxic encephalopathy, likely secondary to alcohol use She was given supportive care. She returned to her baseline. Discussed progressive nature of disease. Transferred to [facility] as she was not a safe dischareg home. -Weakness Likely a combination of electrolyte imbalance, alcohol abuse Given Banana bag PT eval - recommend [facility] -Multiple falls Likely secondary to alcohol use, possible electrolyte imbalance Fall precautions Discussed extensively/counseled on alcohol cessation - UTI UA with evidence of infection, cultures with he coli, sensitive to cephalosporins. Discontinue IV ciprofloxacin and started IV Rocephin. Discharged on PO antibiotics. -Lower extremity cellulitis, bilaterally Patient with multiple cuts on bilateral lower extremity, swelling, and erythema. Consistent with bilateral lower extremity cellulitis. likely from the fall that she has had and swelling could be secondary to CHF versus liver failure versus kidney injury versus alcohol use. Blood cultures without any growth. -Elevated BNP: This could be secondary to heart failure, liver disease, kidney failure/disease, alcohol use Patient without diagnosis of CHF but states that she is taking Lasix at home ( per ER nurse, has been gave medication list). Not sure where/she was prescribing Lasix but no recent echo noted on file. Echo done, normal with ejection fraction of 62%. Given IV lasix x 1, swelling resolved. -Hyponatremia: Resolved -Hypokalemia resolved -Hypomagnesemia resolved -History of depression Does not seem to be on any home medications. Remained stable -Tobacco use Offered patient nicotine patch, she refused. Extensively counseled on cessation though patient not interested at this time. -Alcohol abuse with intoxication Patient with history of alcohol use, drinks 2-3 vodkas/tonic drinks a day (per ER nurse). Put on alcohol withdrawal Assessment q. 4 hrs. Banana bag given. Multivitamin, thiamine and folate also given Librium t.i.d. Ativan p.r.n. agitation. Monitor for seizure, no seizures noted through out stay Discussed extensively/counseled alcohol cessation prior to discharge. Possibly some more resources for alcoholics anonymous if she is interested. Not interested at this time. - malnutrition: Albumin 2.1 - stage I pressure ulcer Discharged in a stable condition to [facility]. Vital Signs/Physical Exam: Temp Pulse Resp BP Pulse Ox 97.6 F 74 18 135/65 95 03/22/18 12:00 03/22/18 12:00 03/22/18 12:00 03/22/18 12:00 03/22/18 12:00 Laboratory Data at Discharge: WBC 7.2 K/uL (4.3-10.9) 03/21/18 04:09 Hgb 14.1 g/dL (12.0-15.0) 03/21/18 04:09 Hct 41.4 % (36.0-45.0) 03/21/18 04:09 Plt Count 327 K/uL (152-406) 03/21/18 04:09 PT 11.1 SECONDS (9.5-12.5) 03/16/18 14:28 INR 0.94 03/16/18 14:28 APTT 27.0 SECONDS (24.3-36.9) 03/16/18 14:28 Sodium 140 mmol/L (136-145) 03/22/18 04:18 Potassium 3.6 mmol/L (3.5-5.1) 03/22/18 04:18 BUN 15 mg/dL (7-18) 03/22/18 04:18 Creatinine 0.50 mg/dL (0.55-1.3) L 03/22/18 04:18 Glucose 103 mg/dL (74-106) 03/22/18 04:18 Phosphorus 4.2 mg/dL (2.5-4.9) 03/22/18 04:18 Magnesium 1.7 mg/dL (1.8-2.4) L 03/22/18 04:18 Total Bilirubin 0.5 mg/dL (0.2-1.0) 03/21/18 04:09 AST 22 U/L (15-37) 03/21/18 04:09 ALT 13 U/L (12-78) 03/21/18 04:09 Alkaline Phosphatase 110 U/L (45-117) 03/21/18 04:09 Home Medications: clonazePAM [Clonazepam] 0.5 mg PO BID PRN 10/31/17 Pantoprazole [Protonix Tab*] 40 mg PO DAILY #30 tab 11/03/17 Furosemide [Lasix*] 40 mg PO DAILY 03/17/18 Lactulose [Cephulac*] 20 gm PO TID 03/17/18 Potassium Oral Tab [Klor-Con 10 mEq Tab*] 20 meq PO BID 03/17/18 Patient Discharge Instructions: Please follow up with your primary care physician in 1-2 weeks Diet: Regular Activity: Fall precautions Physician Review: Patient Assessed, Agree with Above Assessment and Plan Time spent managing pt's care (in minutes): 55
== END 2018-03-22 16:00 | DRG 896 ==
LOC: ER 13:56 → ERHOLD 16:09 → 2ND 17:59
PROVIDERS: ADMIT Family Medicine; ATTEND Family Medicine
DX: F10.26 Alcohol dependence with alcohol-induced persisting amnestic disorder (principal); G92 Toxic encephalopathy; L03.116 Cellulitis of left lower limb; E87.1 Hypo-osmolality and hyponatremia; N39.0 Urinary tract infection, site not specified; E46 Unspecified protein-calorie malnutrition; L03.115 Cellulitis of right lower limb; Z88.5 Allergy status to narcotic agent; Z88.0 Allergy status to penicillin; Z91.81 History of falling; E87.6 Hypokalemia; E83.42 Hypomagnesemia; F32.9 Major depressive disorder, single episode, unspecified; F17.210 Nicotine dependence, cigarettes, uncomplicated; J44.9 Chronic obstructive pulmonary disease, unspecified; B96.20 Unspecified Escherichia coli [E. coli] as the cause of diseases classified elsewhere; F04 Amnestic disorder due to known physiological condition; L89.91 Pressure ulcer of unspecified site, stage 1
CPT/HCPCS: 36415; 51702; 71045; 80048; 80053; 80076; 80320; 81003; 81015; 83735; 83880; 84100; 84132; 85025; 85610; 85730; 87077; 87086; 87088; 87186; 93005; 93306; 94760; 96365; 96375; 97163; 99285; J0696; J1650; J1940; J3411; J3475; J7030